=== PATIENT | male | born 1950 | race Caucasian/White ===

== ENCOUNTER 2024-09-14 14:50 | Inpatient (IN) | payer OTHER ==
[~2024-09-14] VITALS: Ht 175.3 cm; Wt 70.7 kg
--- NOTE | 2024-09-14 15:19 | ED.PDOC ---
SOB-HPI HPI Comments 74 y.o male with PMHx of COPD, AFIB, CHF, and left eye vision loss, presents to the ED via EMS for a chief complaint of SOB x 2 weeks. EMS reports patient was picked up from a local family clinic after provider noted abnormal EKG of AFIB and wanted him to be evaluated at the ED for high level of care. Patient reports he went to the clinic to refill inhaler and some other medications as he has been out for " a while now". EMS reported SPO2 of 97% RA but gave a breathing treatment for comfort measures. Patient denies any chest pain, nausea, vomiting, fever, chills, leg swelling. Patient admits to tobacco use, smokes and vapes it. Chief Complaint: Shortness of Breath Time Seen by MD: 14:54 Primary Care Provider: JULIO Cabrales notes: Nurses Notes, Rail Specialist Notes, Medications, Allergies Information Source: Patient, Emergency Med Personnel Mode of Arrival: EMS Severity: Moderate Timing: Weeks (2) Duration: Since onset PE Risk Factors: None History of: COPD Prehospital treatment: 12 Lead EKG, Breathing Tx, Network Control Technician Associated Signs and Symptoms: None Past Medical History PAST MEDICAL HISTORY: AFIB, CHF, COPD Surgical History: CABG, Hernia Repair Family History Family History: Reviewed,noncontributory to illness Social History Smoker: Cigarettes, Other (vape ) Alcohol: Denies ETOH Use Drugs: Denies Drug Use Lives In: Home Constitutional: denies: chills, diaphoresis, fatigue, fever, malaise, sweats, weakness, others EENTM: denies: blurred vision, double vision, ear bleeding, ear discharge, ear drainage, ear pain, ear ringing, eye pain, eye redness, hearing loss, mouth pain , mouth swelling, nasal discharge, nose bleeding, nose congestion, nose pain, photophobia, tearing, throat pain, throat swelling, voice changes, others Respiratory: reports: SOB at rest, shortness of breath, SOB with excertion; denies: cough, hemoptysis, orthopnea, stridor, wheezing, others Cardiovascular: denies: chest pain, dizzy spells, diaphoresis, Dyspnea on exertion, edema, irregular heart beat, left arm pain, lightheadedness, palpitations, PND, syncope, others Gastrointestinal: denies: abdomen distended, abdominal pain, blood streaked bowels, constipated, diarrhea, dysphagia, difficulty swallowing, hematemesis, melena, nausea, poor appetite, poor fluid intake, rectal bleeding, rectal pain, vomiting, others Genitourinary: denies: burning, dysuria, flank pain, frequency, hematuria, incontinence, penile discharge, penile sore, pain, testicle pain, testicle swelling, urgency, others Neurological: denies: dizziness, fainting, headache, left sided numbness, left sided weakness, numbness, paresthesia, pre-existing deficit, right sided numbness, right sided weakness, seizure, speech problems, tingling, tremors, weakness, others Musculoskeletal: denies: back pain, gout, joint pain, joint swelling, muscle pain, muscle stiffness, neck pain, others Integumetry: denies: bruises, change in color, change in hair/nails, dryness, laceration, lesions, lumps, rash, wounds, others Allergic/Immunocompromised: denies: Difficulty Healing, Frequent Infections, Hives, Itching, others Hematologic/Lymphatic: denies: anemia, blood clots, easy bleeding, easy bruising, swollen glands, others Endocrine: denies: excessive hunger, excessive sweating, excessive thirst, excessive urination, flushing, intolerance to cold, intolerance to heat, unexplained weight gain, unexplained weight loss, others Psychiatric: denies: anxiety, bipolar disorder, depression, hopeless, panic disorder, schizophrenia, sleepless, suicidal, others All Other Systems: Reviewed and Negative Physical Exam General Appearance: Moderate Distress HEENT: Normal ENT Inspection, Pharynx Normal, TMs Normal Neck: Full Range of Motion, Non-Tender, Normal, Normal Inspection Respiratory: Chest Non-Tender, Lungs Clear, No Accessory Muscle Use, No Respiratory Distress, Normal Breath Sounds Cardiovascular: Irregular, No Edema, No JVD, No Murmur, No Gallop, Tachycardia Breast Exam: Deferred Gastrointestinal: No Organomegaly, Non Tender, No Pulsatile Mass, Normal Bowel Sounds, Soft Genitalia: Deferred Pelvic: Deferred Rectal: Deferred Extremities: No calf tenderness, Normal capillary refill, Normal inspection, Normal range of motion, Non-tender, No pedal edema Musculoskeletal : Apperance: Normal Neurologic: Alert, cupola charger II-XII nml as Tested, Motor Weakness, Normal Affect, Normal Mood, No Sensory Deficits Cerebellar Function: Normal Reflexes: Normal Skin: Dry, Normal Color, Warm Lymphatic: No Adenopathy EKG EKG : Pulse Rate (adult): 174 Cardiac Rhythm: Afib Was a procedure done? Was a procedure done?: No Differential Dx Differential Diagnosis: Bronchitis, COPD, Pneumonia, Pulmonary Embolism, Respiratory Distress, URI X-Ray, Labs, Meds, VS Vital Signs Date Time Temp Pulse Resp B/P (MAP) Pulse Ox O2 Delivery O2 Flow Rate FiO2 09/14/24 16:00 94 09/14/24 15:50 133 20 96 Room Air* 0 21 09/14/24 15:48 98.1 166 15 124/100 (108) 95 98.1 09/14/24 15:19 174 09/14/24 15:01 174 09/14/24 14:57 97.7 80 20 123/80 (94) 100 Lab Test 09/14/24 15:23 Range/Units White Blood Count 6.0 4.4-10.8 10^3/uL Red Blood Count 4.48 L 4.5-5.90 10^6/uL Hemoglobin 14.9 13.5-17.5 g/dL Hematocrit 43.9 41.0-53.0 % Mean Corpuscular Volume 98.0 80.0-100.0 fL Mean Corpuscular Hemoglobin 33.3 H 28.0-32.0 pg Mean Corpuscular Hemoglobin Concent 34.0 32.0-36.0 g/dL Red Cell Distribution Width 14.9 H 11.8-14.3 % Platelet Count 159 140-450 10^3/uL Mean Platelet Volume 8.4 6.9-10.8 fL Neutrophils (%) (Auto) 68.3 37.0-80.0 % Lymphocytes (%) (Auto) 23.7 10.0-50.0 % Monocytes (%) (Auto) 5.8 0.0-12.0 % Eosinophils (%) (Auto) 1.4 0.0-7.0 % Basophils (%) (Auto) 0.8 0.0-2.0 % Neutrophils # (Auto) 4.1 1.6-8.6 10 ^3/uL Lymphocytes # (Auto) 1.4 0.4-5.4 10 ^3/uL Monocytes # (Auto) 0.3 0-1.3 10 ^3/uL Eosinophils # (Auto) 0.1 0-0.8 10 ^3/uL Basophils # (Auto) 0 0-0.2 10 ^3/uL Nucleated Red Blood Cells 0.1 % Sodium Level 143 136-145 mmol/L Potassium Level 4.3 3.5-5.1 mmol/L Chloride Level 108 H 98-107 mmol/L Carbon Dioxide Level 24 20-31 mmol/L Anion Gap 11 5-15 Blood Urea Nitrogen 29 H 9-23 mg/dL Creatinine 1.39 H 0.700-1.30 mg/dL Glomerular Filtration Rate Calc 53 >90 mL/min BUN/Creatinine Ratio 20.9 H 10.0-20.0 Serum Glucose 112 H 74-106 mg/dL Calcium Level 10.6 H 8.7-10.4 mg/dL Troponin I High Sensitivity 8 </=54 ng/L B-Type Natriuretic Peptide 633.95 0-100 pg/mL Current Medications Medications (Trade) Dose Ordered Sig/Tiffany Route Start Time Stop Time Status Last Admin Methylprednisolone Sodium Succinate (Solu Medrol) 125 mg ONCE ONCE IV 09/14/24 15:15 09/14/24 15:16 DC 09/14/24 16:08 Diltiazem HCl (Cardizem Injection) 15 mg ONCE ONCE IV 09/14/24 15:15 09/14/24 15:16 DC 09/14/24 15:39 IV Hep-Lock was established The patient was given Solu-Medrol 125 mg IV push The patient's EKG showed a heart rate that was irregular at 174 so the patient was given diltiazem 15 mg IV push Following this the patient now has atrial fibrillation at a rate of 94. On the repeat EKG The chemistry panel shows a BUN of 29 a creatinine 1.39 The glucose is 112 The BNP is elevated at 633.95 The patient's CBC is within normal limits At this time, the patient was being admitted to the hospitalist The chest x-ray shows: IMPRESSION: 1. No acute intrathoracic process. 2. Postoperative changes of the heart and borderline cardiomegaly. At this time, the patient was being admitted Images Reviewed?: Images reviewed and evaluated by me Time of 1ST Reevaluation: 15:14 Reevaluation 1ST: Unchanged Patient Education/Counseling: Diagnosis, Treatment, Prognosis Family Education/Counseling: No Family Present Departure 1 Departure Time of Disposition: 16:21 Impression: Primary Impression: COPD exacerbation Additional Impression: Atrial fibrillation with rapid ventricular response Disposition: ADMITTED INPATIENT Admit to: Tele Condition: Fair Critical Care Note Critical Care Time?: Yes (45 min-critical care time only) Stability Stability form required: Yes Unstable for transfer: Telemetry monitoring (Telemetry monitoring required), ED Physician Assesment (Clinical assesment) Heart Score Heart Score: Heart Score Response (Comments) Value History Moderate Suspicious 1 EKG Repolarization Disturb 1 Age >65 2 Risk Factors >3 or Hx ASHD 2 Troponin N/A 0 Total 6 I personally scribed for JOELLE BROWN MD ([email or web address]) on 09/14/24 at 15:19. Electronically submitted by Brie Echevarria ([facility]). JOELLE BROWN MD Sep 14, 2024 15:19
--- NOTE | 2024-09-14 15:37 | DVH ---
EXAM: XY CHEST PORTABLE HISTORY: sob COMPARISON: None TECHNIQUE: Portable upright AP view of the chest was performed. FINDINGS: No pneumothorax, consolidative infiltrates, or pulmonary edema. The heart is borderline enl arged. There are postoperative changes of median sternotomy. IMPRESSION: 1. No acute intrathoracic process. 2. Postoperative changes of the heart and borderline cardiomegaly.
[2024-09-14] MEDS: dilTIAZem 25 MG/5 ML VIAL IV ONE (15:39)
[2024-09-14 15:44] LABS: Basophils # (auto) 0 10 ^3/uL (0-0.2); Basophils % (auto) 0.8 % (0.0-2.0); Eosinophils # (auto) 0.1 10 ^3/uL (0-0.8); Eosinophils % (auto) 1.4 % (0.0-7.0); Hematocrit 43.9 % (41.0-53.0); Hemoglobin 14.9 g/dL (13.5-17.5); Lymphocytes # (auto) 1.4 10 ^3/uL (0.4-5.4); Lymphocytes % (auto) 23.7 % (10.0-50.0); Mean Corpuscular Hemoglobin 33.3 pg (28.0-32.0); Monocytes # (auto) 0.3 10 ^3/uL (0-1.3); Monocytes % (auto) 5.8 % (0.0-12.0); Neutrophils # (auto) 4.1 10 ^3/uL (1.6-8.6); Neutrophils % (auto) 68.3 % (37.0-80.0); Nucleated Red Blood Cells % 0.1 %; Platelet Count (auto) 159 10^3/uL (140-450); Red Blood Cells 4.48 10^6/uL (4.5-5.90); Red Cell Distribution Width 14.9 % (11.8-14.3)
[2024-09-14 15:50] VITALS: PULSE 133; RESP 20; O2SAT 96
[2024-09-14 15:52] LABS: Potassium 4.3 mmol/L (3.5-5.1); Sodium 143 mmol/L (136-145)
[2024-09-14 15:53] LABS: Anion Gap 11 (5-15); Carbon Dioxide 24 mmol/L (20-31)
[2024-09-14 15:55] LABS: Calcium 10.6 mg/dL (8.7-10.4); Chloride 108 mmol/L (98-107)
--- NOTE | 2024-09-14 15:55 | ECG ---
[facility] Test Date: 2024-09-14 Test Time: 15:01:03 Pat Name: FENG BRIONES Department: ER Room: 0280T Gender: M Ceo Ziff Davis: BAL[place] : 1950 Requested By: JOELLE BROWN Order Number: [id number] Reading MD: Gavin Abraham Measurements Intervals [place] Rate: 174 P: 0 DC: 0 QRS: 111 QRSD: 82 T: -4 QT: 273 QTc: 465 Interpretive Statements Atrial fibrillation with rapid V-rate Right axis deviation Low voltage, extremity leads Repolarization abnormality, prob rate related Electronically Signed On 09-19-2024 18:23:52 PDT by Gavin Abraham Please click the below link to view image of tracing.
[2024-09-14 15:59] LABS: BUN/Creatinine Ratio 20.9 (10.0-20.0)
[2024-09-14 16:01] LABS: Blood Urea Nitrogen 29 mg/dL (9-23); Glucose 112 mg/dL (74-106)
--- NOTE | 2024-09-14 16:06 | ECG ---
[facility] Test Date: 2024-09-14 Test Time: 16:00:45 Pat Name: FENG BRIONES Department: ER Room: 0280T Gender: M Relations Liaison: BAL[place] : 1950 Requested By: JOELLE BROWN Order Number: [id number] Reading MD: Gavin Abraham Measurements Intervals [place] Rate: 94 P: 0 [place]: 0 QRS: 127 QRSD: 96 T: -39 QT: 371 QTc: 464 Interpretive Statements Atrial fibrillation Right axis deviation Borderline low voltage, extremity leads Nonspecific T abnormalities, lateral leads Electronically Signed On 09-19-2024 18:24:07 PDT by Gavin Abraham Please click the below link to view image of tracing.
[2024-09-14] MEDS: methylPREDNISolone SOD SUCC 125 MG/2 ML VL IV ONE (16:08)
--- NOTE | 2024-09-14 18:09 | ECG ---
[facility] Test Date: 2024-09-14 Test Time: 18:06:28 Pat Name: FENG BRIONES Department: ER Room: 0280T Gender: M Tactical/Mobile Watch Officer: BAL[place] : 1950 Requested By: JOELLE BROWN Order Number: [id number] Reading MD: Gavin Abraham Measurements Intervals [place] Rate: 108 P: 0 [place]: 0 QRS: 179 QRSD: 99 T: -90 QT: 365 QTc: 490 Interpretive Statements Atrial fibrillation Right axis deviation Borderline low voltage, extremity leads Electronically Signed On 09-19-2024 18:24:48 PDT by Gavin Abraham Please click the below link to view image of tracing.
[2024-09-14 18:30] LABS: Urine Bacteria None Seen /hpf (None Seen)
[2024-09-14] MEDS ORDERED: NITROGLYCERIN 0.4 MG SL TAB SL PRN (18:30)
[2024-09-14] MEDS ORDERED: MORPHINE SULFATE INJ 2 MG/ml SYRG IV PRN (18:30)
[2024-09-14] MEDS ORDERED: ONDANSETRON HCL 4 MG/2 ML VIAL IV PRN (18:30)
--- NOTE | 2024-09-14 18:34 | DVHHP2 ---
History of Present Illness Reason for Visit: Acute exacerbation of congestive heart failure History of Present Illness The patient is a 74-year-old male with past medical history of left eye vision loss, COPD, AFib, and congestive heart failure who presented to [facility] ED with complaint of shortness of breaths for the past 2 weeks. As reported by EMS, patient was picked up from a local family clinic after provided noted abnormal EKG of atrial fibrillation and wanted him to be evaluated in the ED for higher level of care. Patient was seen and evaluated in the ED, l aboratory data shows WBC 6.0, platelets 159, sodium 143, potassium 4.3, BUN 29, creatinine 1.39, GFR 53, glucose 112, calcium 10.6, BNP 633.95, troponin 8, blood pressure 124/100, heart rate 174 trending down to 94, temperature 98.1 F, O2 saturation 96% on room air. Chest x-ray revealing postoperative changes of the heart and borderline cardiomegaly, no acute intrathoracic process. Patient was given IV Cardizem 50 mg x 1, IV Lasix, please see medication orders section in the computer. On my assessment, patient denied chest pain, no headache, no dizziness, no diaphoresis, no shortness of breath at this moment, no nausea, no vomiting, no fever, no chills. Patient was admitted for further evaluation and medical management. Past Medical History AFIB, CHF, COPD, Left eye vision loss Past Surgical History CABG, Hernia Repair Family History Reviewed, noncontributory to the management of this case. Past Social History The patient lives at home, smokes cigarettes, denies alcohol or illicit drugs abuse. Review of Systems Constitutional: Yes: Weakness; No: Fever, Chills, Sweats, Malaise, Other Eyes: No: Pain, Vision change, Conjunctivae inflammation, Eyelid inflammation, Other, Redness ENT: No: Ear pain, Ear discharge, Nose pain, Nose discharge, Nose congestion, Mouth pain, Mouth swelling, Throat pain, Throat swelling, Other Respiratory: Shortness of breath, SOB with excertion, Other (SOB at rest); No: Cough, Dry, Wheezing, Hemoptysis, Pleuritic Pain, Sputum, Wheezing Cardiovascular: Other (AFib); No: Chest Pain, Palpitations, Orthopnea, Paroxysmal Noc. Dyspnea, Edema, Lt Headedness Gastrointestinal: No: Nausea, Vomiting, Abdominal Pain, Diarrhea, Constipation, Melena, Hematochezia, Other Genitourinary: No Dysuria, No Frequency, No Incontinence, No Hematuria, No Retention, No Other Musculoskeletal: No: other, neck pain, shoulder pain, arm pain, back pain, hand pain, leg pain, foot pain Skin: No: Rash, Lesions, Jaundice, Bruising, Other Neurological: No: Weakness, Numbness, Incoordination, Change in speech, Confusion, Seizures, Other Allergies: Coded Allergies: NO KNOWN ALLERGIES (Unverified , 09/14/24) Exam Vital Signs Vital Signs Date Time Temp Pulse Resp B/P (MAP) Pulse Ox O2 Delivery O2 Flow Rate FiO2 09/14/24 16:00 94 09/14/24 15:50 20 96 Room Air* 0 21 09/14/24 15:48 98.1 124/100 (108) 98.1 General Appearance: Alert, Oriented X3, Cooperative, No acute distress HEENT: Atraumatic, PERRLA, EOMI, Mucous membr. moist/pink Respiratory: Clear to auscultation, Normal air movement Cardiovascular: Regular rate, Normal S1, Normal S2, No murmurs Abdominal: Normal bowel sounds, Soft, No tenderness, No hepatospenomegaly Extremities: No clubbing, No cyanosis, No edema, Normal pulses, No tenderness/swelling Skin: No rashes, No breakdown, No significant lesion Neuro: Normal speech, Normal tone, Sensation intact, Cranial nerves 3-12 NL, Reflexes 2+, Other (Generalized weakness) Psych/Mental Status: Mental status NL, Mood NL Labs/Xrays Labs Test 09/14/24 18:29 09/14/24 16:28 09/14/24 15:23 Range/Units Troponin I High Sensitivity 8 </=54 ng/L White Blood Count 6.0 4.4-10.8 10^3/uL Red Blood Count 4.48 L 4.5-5.90 10^6/uL Hemoglobin 14.9 13.5-17.5 g/dL Hematocrit 43.9 41.0-53.0 % Mean Corpuscular Volume 98.0 80.0-100.0 fL Mean Corpuscular Hemoglobin 33.3 H 28.0-32.0 pg Mean Corpuscular Hemoglobin Concent 34.0 32.0-36.0 g/dL Red Cell Distribution Width 14.9 H 11.8-14.3 % Platelet Count 159 140-450 10^3/uL Mean Platelet Volume 8.4 6.9-10.8 fL Neutrophils (%) (Auto) 68.3 37.0-80.0 % Lymphocytes (%) (Auto) 23.7 10.0-50.0 % Monocytes (%) (Auto) 5.8 0.0-12.0 % Eosinophils (%) (Auto) 1.4 0.0-7.0 % Basophils (%) (Auto) 0.8 0.0-2.0 % Neutrophils # (Auto) 4.1 1.6-8.6 10 ^3/uL Lymphocytes # (Auto) 1.4 0.4-5.4 10 ^3/uL Monocytes # (Auto) 0.3 0-1.3 10 ^3/uL Eosinophils # (Auto) 0.1 0-0.8 10 ^3/uL Basophils # (Auto) 0 0-0.2 10 ^3/uL Nucleated Red Blood Cells 0.1 % Sodium Level 143 136-145 mmol/L Potassium Level 4.3 3.5-5.1 mmol/L Chloride Level 108 H 98-107 mmol/L Carbon Dioxide Level 24 20-31 mmol/L Anion Gap 11 5-15 Blood Urea Nitrogen 29 H 9-23 mg/dL Creatinine 1.39 H 0.700-1.30 mg/dL Glomerular Filtration Rate Calc 53 >90 mL/min BUN/Creatinine Ratio 20.9 H 10.0-20.0 Serum Glucose 112 H 74-106 mg/dL Calcium Level 10.6 H 8.7-10.4 mg/dL B-Type Natriuretic Peptide 633.95 0-100 pg/mL PATIENT: FEGN BRIONES ACCT: [id number] UNIT: [id number] : 1950 LOC: ER ROOM / BED: / AGE / SEX: 74 / M ADM STATUS: REG ER SERVICE [id number] ORDERING PHYSICIAN: JOELLE BROWN MD PROCEDURE(s): CXRP - CHEST PORTABLE REASON: sob ORDER NUMBER(s): [id number], ACCESSION NUMBER(s): [id number] EXAM: XY CHEST PORTABLE HISTORY: sob COMPARISON: None TECHNIQUE: Portable upright AP view of the chest was performed. FINDINGS: No pneumothorax, consolidative infiltrates, or pulmonary edema. The heart is borderline enlarged. There are postoperative changes of median sternotomy. IMPRESSION: 1. No acute intrathoracic process. 2. Postoperative changes of the heart and borderline cardiomegaly. Assessment/Plan Assessment/Plan COPD with acute exacerbation Acute renal injury Atrial fibrillation with rapid ventricular response Acute exacerbation of congestive heart failure Plan 1. Admit to telemetry unit 2. Breathing treatment 3. Pain control management 4. Management of fluids and electrolytes 5. Consultation for Cardiology 6. Diagnostic tests chest x-ray 7. DVT prophylaxis-on aspirin 8. Repeat labs CBC, CMP in a.m. 9. Continue with current medical management 10. Treatment plan discussed with patient and RN. Patient verbalized understanding. Plan discussed with: Patient, Other (RN) My Orders Orders - ISHMAEL OAKES DNP Procedure Category Date Status Time Aspirin Tablet PHA 09/15/24 Transmitted 10:00 Methylprednisolone PHA 09/14/24 Transmitted Sod Succ (Solu Medrol 22:00 Famotidine Injection PHA 09/14/24 Transmitted (Pepcid Injection) 22:00 Carvedilol Tablet PHA 09/14/24 Transmitted (Coreg Tablet) 22:00 Furosemide Injection PHA 09/14/24 Transmitted (Lasix Injection) 18:30 Furosemide Injection PHA 09/15/24 Transmitted (Lasix Injection) 10:00 * Cardiology Consult CONS 09/14/24 Transmitted 18:28 Admit ADMIT 09/14/24 Transmitted 18:28 Allergies YEE 09/14/24 Transmitted 18:28 Code Status CODE 09/14/24 Transmitted 18:28 Sodium Chloride Lock PHA 09/14/24 Transmitted (Saline Lock Ns) 22:00 Oxygen Per Hour RT 09/14/24 Transmitted 18:28 Hydrocodone-Acet PHA 09/14/24 Transmitted 5/325mg Tab ([place] 18:30 Ondansetron Hcl PHA 09/14/24 Transmitted (Zofran) 18:30 Docusate Sodium PHA 09/14/24 Transmitted Capsule (Colace 18:30 Fall Risk Precautions YEE 09/14/[address] 18:28 Complete Blood Count LAB 09/15/24 Verified 04:00 Comprehensive LAB 09/15/24 Verified Metabolic Panel 04:00 Cardiac DIET 09/14/24 Transmitted Diet-2gna,Lofat,Lochol Dinner Echo 2d Mode Cardiac US 09/14/24 Transmitted DOP 18:28 Condition: Serious YEE 09/14/24 Transmitted 18:28 Acetaminophen Tablet PHA 09/14/24 Transmitted (Tylenol Tablet) 18:30 Bedrest With Bathroom YEE 09/14/24 Transmitted Privileg 18:28 Sequential YEE 09/14/24 Transmitted Compression Device Nitroglycerin PHA 09/14/24 Transmitted Sublingual (Ntrostat 18:30 Morphine Sulfate PHA 09/14/24 Transmitted Injection 18:30 Stat Ekg For Chest YEE 09/14/24 Transmitted Pain 18:28 Notify Md Of Changes YEE 09/14/24 Transmitted From Base 18:28 Supervisor Poultry Hat[employer]y For [facility] 09/14/24 Transmitted 24 Hours 18:28 Emergency Dysrhythmia YEE 09/14/24 Transmitted Protocol 18:28 Rhythm Strips Once YEE 09/14/24 Transmitted Every Shift 18:28 Oxygen By Nasal RT 09/14/24 Transmitted Cannula 18:28 Problem List: (1) COPD with acute exacerbation (2) Acute renal injury (3) Acute exacerbation of congestive heart failure (4) Atrial fibrillation with rapid ventricular response Date of Service: Sep 14, 2024 Billing Provider: ISHMAEL OAKES DNP Common Visit Codes: [id number] INP/OBS CARE (HIGH) ISHMAEL OAKES DNP Sep 14, 2024 18:34
[2024-09-14 18:49] LABS: Urine Blood 1+ /uL (Negative); Urine Clarity Clear (Clear); Urine Color Colorless (Yellow); Urine Protein, UAD Negative (Negative); Urine Specific Gravity 1.008 (1.001-1.035); Urine Squamous Epithelial Cell None Seen /hpf (<5); Urine Urobilinogen Normal (Negative); Urine WBC < 1 /HPF (0-3)
[2024-09-14] MEDS: FUROSEMIDE 20 MG/2 ML VIAL IV ONE (18:51)
[2024-09-14 19:30] VITALS: PULSE 104; RESP 13; O2SAT 96
[2024-09-14 22:00] VITALS: BP 108/82; PULSE 117; RESP 19; TEMP 97.7; O2SAT 97
[2024-09-14 22:05] VITALS: BP 108/82; PULSE 117; RESP 19; TEMP 97.7; O2SAT 97
[2024-09-14 22:20] VITALS: PULSE 117; RESP 20; O2SAT 97
[2024-09-14] MEDS: methylPREDNISolone SOD SUCC 40 MG/ML VL IV SCH (22:25)
[2024-09-14] MEDS: CARVEDILOL 3.125 MG TAB PO SCH (22:27)
[2024-09-14] MEDS: SODIUM CHLOR 0.9% PF (SALINE LOCK) 10ML VIAL/SYR IV SCH (22:28)
[2024-09-14] MEDS: FAMOTIDINE (10MG/ML) 2ML VL IV SCH (22:33)
[2024-09-15] VITALS (9 sets, daily range): BP systolic 92–112; BP diastolic 62–91; PULSE 53–126; RESP 16–20; TEMP 97.3–98.5; O2SAT 95–98
[2024-09-15] MEDS: ACETAMINOPHEN 325 MG TAB PO PRN (01:46)
[2024-09-15 06:47] LABS: Basophils # (auto) 0 10 ^3/uL (0-0.2); Basophils % (auto) 0.1 % (0.0-2.0); Eosinophils # (auto) 0 10 ^3/uL (0-0.8); Lymphocytes # (auto) 0.5 10 ^3/uL (0.4-5.4); Monocytes # (auto) 0.1 10 ^3/uL (0-1.3)
[2024-09-15 06:48] LABS: Alanine Aminotransferase 16 U/L (7-40); Albumin 4.2 g/dL (3.2-4.8); Alkaline Phosphatase 63 U/L (46-116); Anion Gap 11 (5-15); Aspartate Aminotransferase 23 U/L (13-40); BUN/Creatinine Ratio 23.1 (10.0-20.0); Calcium 10.3 mg/dL (8.7-10.4); Carbon Dioxide 23 mmol/L (20-31); Chloride 107 mmol/L (98-107); Potassium 4.3 mmol/L (3.5-5.1); Sodium 141 mmol/L (136-145); Total Protein 6.8 g/dL (5.7-8.2)
[2024-09-15 06:49] LABS: Bilirubin, Total 0.3 mg/dL (0.2-1.0)
[2024-09-15 06:50] LABS: Hematocrit 40.2 % (41.0-53.0); Hemoglobin 13.9 g/dL (13.5-17.5); Lymphocytes % (auto) 9.3 % (10.0-50.0); Mean Corpuscular Hemoglobin 34.1 pg (28.0-32.0); Mean Corpuscular Hgb Conc. 34.6 g/dL (32.0-36.0); Mean Corpuscular Volume 98.3 fL (80.0-100.0); Monocytes % (auto) 1.8 % (0.0-12.0); Neutrophils # (auto) 4.6 10 ^3/uL (1.6-8.6); Neutrophils % (auto) 88.8 % (37.0-80.0); Platelet Count (auto) 133 10^3/uL (140-450); Red Blood Cells 4.09 10^6/uL (4.5-5.90); Red Cell Distribution Width 14.6 % (11.8-14.3); White Blood Cell 5.2 10^3/uL (4.4-10.8)
[2024-09-15 06:51] LABS: Blood Urea Nitrogen 30 mg/dL (9-23); Glucose 143 mg/dL (74-106)
[2024-09-15] MEDS: ASPirin 81 mg TAB PO SCH (10:29)
[2024-09-15] MEDS: FUROSEMIDE 20 MG/2 ML VIAL IV SCH ×2 (10:32→18:00)
--- NOTE | 2024-09-15 13:39 | DVHPN2 ---
Reviewed: Care Plan, H&P, Labs, Medications, Previous Orders, Radiology Changes from previous H/P or p: No Changes Eyes: No Pain, No Vision change, No Conjunctivae inflammation, No Eyelid inflammation, No Other, No Redness ENT: No Ear pain, No Ear discharge, No Nose pain, No Nose discharge, No Nose congestion, No Mouth pain, No Mouth swelling, No Throat pain, No Throat swelling, No Other Cardiovascular: No Chest Pain, No Palpitations, No Orthopnea, No Paroxysmal Noc. Dyspnea, No Edema, No Lt Headedness; Other (AFib) Respiratory: No Cough, No Dry; Shortness of breath, SOB with excertion; No Wheezing, No Hemoptysis, No Pleuritic Pain, No Sputum; Other (SOB at rest) Gastrointestinal: No Nausea, No Vomiting, No Abdominal Pain, No Diarrhea, No Constipation, No Melena, No Hematochezia, No Other Genitourinary: No Dysuria, No Frequency, No Incontinence, No Hematuria, No Retention, No Other Musculoskeletal: No other, No neck pain, No shoulder pain, No arm pain, No back pain, No hand pain, No leg pain, No foot pain Skin: No Rash, No Lesions, No Jaundice, No Bruising, No Other Objective Vitals Vital Signs Date Time Temp Pulse Resp B/P (MAP) Pulse Ox O2 Delivery O2 Flow Rate FiO2 09/15/24 10:32 125/68 09/15/24 10:27 68 09/15/24 09:00 98.5 17 96 98.5 09/15/24 08:00 Room Air* 0 21 Intake/Output Intake and Output 09/15/24 07:00 Intake Total 350 ml Balance 350 ml Intake Oral 350 ml # Voids 2 Medications Current Medications Medications Dose Ordered Sig/Tiffany Route Start Time Stop Time Status Last Admin Dose Admin Aspirin 81 mg DAILY PO 09/15/24 10:00 09/15/24 10:29 81 MG Methylprednisolone Sodium Succinate 40 mg Q8HR IV 09/14/24 22:00 09/15/24 05:39 40 MG Famotidine 20 mg EOD IV 09/14/24 22:00 09/14/24 22:33 20 MG Carvedilol 3.125 mg Q12HR PO 09/14/24 22:00 09/15/24 10:27 3.125 MG Furosemide 20 mg DAILY IV 09/15/24 10:00 09/15/24 10:32 20 MG Sodium Chloride 10 ml Q8HR IV 09/14/24 22:00 09/15/24 05:39 10 ML Acetaminophen/ Hydrocodone Bitart 1 tab Q4HP PRN PO 09/14/24 18:30 Ondansetron HCl 4 mg Q4HP PRN IV 09/14/24 18:30 Docusate Sodium 100 mg BIDPRN PRN PO 09/14/24 18:30 Acetaminophen 650 mg Q6HP PRN PO 09/14/24 18:30 09/15/24 01:46 650 MG Nitroglycerin 0.4 mg Q5MINP PRN SL 09/14/24 18:30 Morphine Sulfate 2 mg Q30M PRN IV 09/14/24 18:30 Laboratory Results Laboratory Tests 09/15/24 05:52 Chemistry Test 09/14/24 15:23 09/15/24 05:52 Calcium Level 10.6 mg/dL (8.7-10.4) H 10.3 mg/dL (8.7-10.4) Albumin 4.2 g/dL (3.2-4.8) Total Protein 6.8 g/dL (5.7-8.2) Cardiac Markers Test 09/14/24 15:23 B-Type Natriuretic Peptide 633.95 pg/mL (0-100) LFT Test 09/15/24 05:52 Alanine Aminotransferase (ALT) 16 U/L (7-40) Alkaline Phosphatase 63 U/L (46-116) Aspartate Amino Transferase (AST) 23 U/L (13-40) Total Bilirubin 0.3 mg/dL (0.2-1.0) Urinalysis Test 09/14/24 18:29 Urine Color Colorless (Yellow) Urine Clarity Clear (Clear) Urine pH 6.0 (5.0-9.0) Urine Specific [place] 1.008 (1.001-1.035) Urine Protein Negative (Negative) Urine Ketones 1+ (Negative) H Urine Blood 1+ /uL (Negative) H Urine Nitrite Negative (Negative) Urine Bilirubin Negative (Negative) Urine Urobilinogen Normal mg/dL (Negative) Urine Leukocyte Esterase Negative /uL (Negative) Urine RBC 8 /hpf (0 - 3) Urine Microscopic WBC < 1 /HPF (0-3) Urine Squamous Epithelial Cells None seen /hpf (<5) Urine Bacteria None seen /hpf (None Seen) Urine Glucose Normal mg/dL (Normal) Labs and/or images reviewed: Labs reviewed by me, Image(s) reviewed by me Assessment/Plan Assessment/Plan Acute on chronic hypoxic respiratory failure Acute COPD exacerbation albuterol Atrovent Solu-Medrol Acute exacerbation of congestive heart failure: Cardiology consult, Kasandra Day AFib with a RVR Acute kidney injury Left eye blind Time spent 45 minutes Patient is full code Flu test COVID test and D-dimer ordered Plan discussed with: Patient Date of Service: Sep 15, 2024 Billing Provider: PILY ANGEL MD Common Visit Codes: [id number] INP/OBS CARE(HIGH) Secondary Visit Codes: [id number] CARE PLAN 30 MINUTES PILY ANGEL MD Sep 15, 2024 13:39
[2024-09-15] MEDS ORDERED: ALBUTEROL SULF 2.5 MG/0.5ML(0.5%) NEB SOLN NEB PRN (13:45)
[2024-09-15] MEDS ORDERED: IPRATROPIUM BROM 0.5 MG/2.5ML INH SOL NEB PRN (13:45)
--- NOTE | 2024-09-15 13:59 | DVHINCON2 ---
RAMSES WOLF [facility] 09/15/24 1359: Date Seen: Sep 15, 2024 Referring Physician VERONA Lzaaro Reason for Consultation A-fib with RVR History of Present Illness This is a 74-year-old man who presented to the emergency room via EMS with a chief complaint of AFib with RVR. The patient reports he attended an appointment with his PCP in order to refill his nebulizer given progressive shortness of breath associated with YOUSIF and dizziness for the past two weeks. He underwent a 12 lead electrocardiogram revealing an atrial fibrillation rhythm with rapid ventricular rate prompting medical staff to call 911. Upon arrival to the emergency room he underwent subsequent 12 lead electrocardiogram revealing AFib with RVR up to the 170s and nonspecific changes to inferolateral leads. Denies chest pain, palpitations, diaphoresis, or syncopal events. Serial troponin levels are negative. Denies following up in the outpatient setting with the primary assembler seat even though he has extensive cardiac history including a-fib. He also denies any anticoagulation therapy at home stating he was prescribed warfarin therapy right after CABG eight years ago. States warfarin is "rat poison" and his research friend recommended ASA 81mg q6h which he has been taking since. Significant medical history includes quadruple vessel CABG at [facility] on 2017, unspecified atrial fibrillation without AC/DOAC/antiarrhythmic therapy, congestive heart failure, COPD, tobacco use, and hard of hearing. Past Medical History Past medical history reviewed. No other significant than mentioned above. Past Surgical History Quadruple vessel CABG, 2017 Inguinal hernia Family History: Patient reports no known family medical history. Family History Family history reviewed. Social History Denies the use of illicit drugs and alcohol. Admits to tobacco use. Allergies: Coded Allergies: NO KNOWN ALLERGIES (Unverified , 09/14/24) Home Meds Unable to retrieve home medications. Current Medications Current Medications Medications (Trade) Dose Ordered Sig/Tiffany Route PRN Reason Start Time Stop Time Status Last Admin Aspirin 81 mg DAILY PO 09/15/24 10:00 09/15/24 10:29 Methylprednisolone Sodium Succinate (Solu Medrol) 40 mg Q8HR IV 09/14/24 22:00 09/15/24 05:39 Famotidine (Pepcid Injection) 20 mg EOD IV 09/14/24 22:00 09/14/24 22:33 Carvedilol (Coreg Tablet) 3.125 mg Q12HR PO 09/14/24 22:00 09/15/24 10:27 Furosemide (Lasix Injection) 20 mg DAILY IV 09/15/24 10:00 09/15/24 10:32 Sodium Chloride (Saline Lock Ns) 10 ml Q8HR IV 09/14/24 22:00 09/15/24 05:39 Acetaminophen/ Hydrocodone Bitart ([place] 5/325MG Tab) 1 tab Q4HP PRN PO MODERATE PAIN (4-6 PAIN SCALE) 09/14/24 18:30 Ondansetron HCl (Zofran) 4 mg Q4HP PRN IV NAUSEA / VOMITING 09/14/24 18:30 Docusate Sodium (Colace Capsule) 100 mg BIDPRN PRN PO FOR CONSTIPATION 09/14/24 18:30 Acetaminophen (Tylenol Tablet) 650 mg Q6HP PRN PO PAIN SCALE 1-3 OR TEMP>100.4 09/14/24 18:30 09/15/24 01:46 Nitroglycerin (Ntrostat Sublingual) 0.4 mg Q5MINP PRN SL FOR CHEST PAIN 09/14/24 18:30 Morphine Sulfate 2 mg Q30M PRN IV FOR CHEST PAIN 09/14/24 18:30 Review of Systems Constitutional: No symptom reported Ears, Nose, & Throat: No symptom reported Eyes: No symptom reported Neurological: Dizziness Pulmonary/Respiratory: SOB Cardiovascular: No symptom reported Gastrointestinal: No symptom reported Genitourinary: No symptom reported Musculoskeletal: No symptom reported Skin: No symptom reported Psychiatric: No symptom reported Endocrine: No symptom reported Hemotologic/Lymphatic: No symptom reported Vital Signs Vital Signs Date Time Temp Pulse Resp B/P (MAP) Pulse Ox O2 Delivery O2 Flow Rate FiO2 09/15/24 10:32 125/68 09/15/24 10:27 68 09/15/24 09:00 98.5 17 96 98.5 09/15/24 08:00 Room Air* 0 21 Physical Exam General Appearance: Cooperative. Altered. Hard of hearing. Well nourished. In no acute distress Head Exam: Normal inspection Neck Exam: Normal inspection. Non-tender. Normal alignment Pulmonary/Respiratory: Chest non-tender. Clear bilateral breath sounds Cardiovascular/Chest: Irregularly irregular rate and rhythm. AFib, uncontrolled rate. No murmurs. No JVD. Peripheral Pulses: 2+ Radial (R). 2+ Radial (L). 2+ Pedal (R). 2+ Pedal (L) Abdominal Exam: Normal bowel sounds. Soft. Nontender. No hepatospenomegaly. No masses Ankle Exam: Negative ankle edema Lower extremities: Negative lower extremity edema Neuro/Mental Status: A&O x4. Coherent Thoughts/Psych: Normal thought pattern. Appropriate mood and affect. Good judgement and insight Appearance: In no acute distress Skin Exam: Normal inspection. Normal color. Warm. Dry Labs/Diagnostic Data Labs Test 09/15/24 05:52 09/14/24 18:29 09/14/24 16:28 09/14/24 15:23 Range/Units White Blood Count 5.2 4.4-10.8 10^3/uL Red Blood Count 4.09 L 4.5-5.90 10^6/uL Hemoglobin 13.9 13.5-17.5 g/dL Hematocrit 40.2 L 41.0-53.0 % Mean Corpuscular Volume 98.3 80.0-100.0 fL Mean Corpuscular Hemoglobin 34.1 H 28.0-32.0 pg Mean Corpuscular Hemoglobin Concent 34.6 32.0-36.0 g/dL Red Cell Distribution Width 14.6 H 11.8-14.3 % Platelet Count 133 L 140-450 10^3/uL Mean Platelet Volume 8.3 6.9-10.8 fL Neutrophils (%) (Auto) 88.8 H 37.0-80.0 % Lymphocytes (%) (Auto) 9.3 L 10.0-50.0 % Monocytes (%) (Auto) 1.8 0.0-12.0 % Eosinophils (%) (Auto) 0.0 0.0-7.0 % Basophils (%) (Auto) 0.1 0.0-2.0 % Neutrophils # (Auto) 4.6 1.6-8.6 10 ^3/uL Lymphocytes # (Auto) 0.5 0.4-5.4 10 ^3/uL Monocytes # (Auto) 0.1 0-1.3 10 ^3/uL Eosinophils # (Auto) 0 0-0.8 10 ^3/uL Basophils # (Auto) 0 0-0.2 10 ^3/uL Nucleated Red Blood Cells 0.0 % Sodium Level 141 136-145 mmol/L Potassium Level 4.3 3.5-5.1 mmol/L Chloride Level 107 98-107 mmol/L Carbon Dioxide Level 23 20-31 mmol/L Anion Gap 11 5-15 Blood Urea Nitrogen 30 H 9-23 mg/dL Creatinine 1.30 0.700-1.30 mg/dL Glomerular Filtration Rate Calc 57 >90 mL/min BUN/Creatinine Ratio 23.1 H 10.0-20.0 Serum Glucose 143 H 74-106 mg/dL Calcium Level 10.3 8.7-10.4 mg/dL Total Bilirubin 0.3 0.2-1.0 mg/dL Aspartate Amino Transferase (AST) 23 13-40 U/L Alanine Aminotransferase (ALT) 16 7-40 U/L Alkaline Phosphatase 63 46-116 U/L Total Protein 6.8 5.7-8.2 g/dL Albumin 4.2 3.2-4.8 g/dL Urine Color Colorless Yellow Urine Clarity Clear Clear Urine pH 6.0 5.0-9.0 Urine Specific [place] 1.008 1.001-1.035 Urine Protein Negative Negative Urine Ketones 1+ H Negative Urine Blood 1+ H Negative /uL Urine Nitrite Negative Negative Urine Bilirubin Negative Negative Urine Urobilinogen Normal Negative mg/dL Urine Leukocyte Esterase Negative Negative /uL Urine RBC 8 0 - 3 /hpf Urine Microscopic WBC < 1 0-3 /HPF Urine Squamous Epithelial Cells None seen <5 /hpf Urine Bacteria None seen None Seen /hpf Urine Glucose Normal Normal mg/dL Troponin I High Sensitivity 8 </=54 ng/L B-Type Natriuretic Peptide 633.95 0-100 pg/mL Assessment Atrial fibrillation with rapid ventricular rate, off NOAC/AC therapy at home Acute on chronic decompensated HFrEF, newly diagnosed COPD with current tobacco use Borderline thrombocytopenia Acute kidney injury Hard of hearing Plan/Recommendation (Dr. Mckeon) Case discussed in full detail and patient evaluated by Dr. Mckeon. We will continue further cardiac evaluation with a transthoracic echocardiogram to evaluate cardiac function. In the meantime, initiate GDMT for CHF and uptitrate as tolerated. Initiate Preload and afterload reduction in combination with strict I&Os and fluid restriction. Continue single-antiplatelet therapy and lipid lowering agent given history of CAD. Initiate rate control with beta- harshil and digoxin therapy as HR is fluctuating up to the 160s bpm. Initiate NOAC therapy with low-dose Eliquis given borderline thrombocytopenia ([id number]- VASc Score 4 points, HAS-BLED Score 2 points). Hold antiarrhythmic therapy given onset of symptoms and lack of AC therapy at home. Monitor ECG changes closely and notify. Thank you for allowing us to participate in this patient's care. Please call if you have any questions or concerns. This medical document was created using an electronic medical record system with voice recognition software and computerized dictation system. Although this document has been carefully reviewed, there might still be some phonetic and typographical errors. Occasional wrong-word or ``sound-alike substitutions may have occurred due to the inherent limitations of voice recognition software. These areas are purely typographical due to imperfections of the software pro grams and do not reflect any compromise in the patient's medical care. Please read the chart carefully and recognize, using context, where these substitutions have occurred. Plan discussed with: Patient, Other NYHA Physical activity limitations: Class3(Marked) ordinary (activity causes symtoms) Date of Service: Sep 15, 2024 Billing Provider: RAMSES WOLF Cardiology Common Codes: [id number] INP/OBS CARE (High) SAMIA MCKEON MD 09/17/24 1633: Date Seen: Sep 15, 2024 Family History: Patient reports no known family medical history. Allergies: Coded Allergies: NO KNOWN ALLERGIES (Unverified , 09/14/24) Plan/Recommendation 74-year-old male with a long history of atrial fibrillation, possibly post cardiac surgery reports non-compliance with anticoagulation due to concerns of warfarin. Currently AF with RVR. Reports sob x 2 weeks. I had a long discussion with the patient about his about the importance of appropriate management to avoid further deterioration.I also noted to him that the transthoracic echocardiogram is demonstrating an enlarged aorta that will need further referral and follow up. I have provided him with my business card to facilitate early discharge follow up in the clinic. Patient has reported significant difficulties with medication compliance due to cost as well as transportation issues.We will pursue rate control and anticoagulation with DA, we will ask case management to facilitate reducing cost of medication's. Suspect underlying psychiatric disorder given his flight of ideas and mood swing.Recommend against discharging patient on digoxin due to known risk associated with drug. Cardiology Common Codes: [id number] INP/OBS CARE (High) RAMSES WOLF Sep 15, 2024 13:59 SAMIA MCKEON MD Sep 17, 2024 16:33
[2024-09-15 14:57] LABS: Magnesium 2.2 mg/dL (1.6-2.6)
[2024-09-15] MEDS: DIGOXIN (250MCG/ML) 2 ML AMPULE IV ONE (16:03)
[2024-09-15] MEDS: dilTIAZem 25 MG/5 ML VIAL IV ONE (17:43)
[2024-09-15] MEDS: methylPREDNISolone SOD SUCC 40 MG/ML VL ONE (17:43)
[2024-09-15] MEDS: ATORVASTATIN 20 MG TAB PO SCH (21:57)
[2024-09-15] MEDS ORDERED: APIXABAN 2.5 MG TAB PO SCH (22:00)
[2024-09-15 23:12] LABS: COVID19 ANTIGEN SOFIA FIA NEGATIVE (NEGATIVE); Rapid Influenza A Negative (Negative); Rapid Influenza B Negative (Negative)
--- NOTE | 2024-09-15 23:56 | DVH ---
CT ANGIOGRAM CHEST WITH CONTRAST FOR PULMONARY EMBOLUS CLINICAL HISTORY: Rule out dissection TECHNIQUE: Helical axial scans of the chest during dynamic intravenous contrast injection. Pulmonary embolism protocol. Multiplanar reformats. Postprocessing MIP images. One or more of the following rad iation dose reduction techniques were used for this examination: automated exposure control, adjustme nt of the mA and/or kV according to patient size, use of iterative reconstruction technique. COMPARISON: Chest x-ray obtained earlier the same day. FINDINGS: Pulmonary arteries: There is adequate enhancement of the pulmonary arterial system, however, respirat ory motion artifact limits evaluation beyond the proximal lobar branches. As visualized, no definite central or proximal lobar branch pulmonary emboli are identified. Mediastinum: Heart is enlarged. Coronary artery and aortic atherosclerotic calcifications noted. The re is inadequate opacification of the aorta to evaluate for aortic dissection. Aneurysmal dilatation of the ascending aorta to approximately 4.3 cm. No pericardial effusion. Scattered borderline enlarg ed mediastinal lymph nodes. Large hiatal hernia. Reflux of contrast into the IVC suggesting a degree of heart failure. Correlate with echocardiography. Lung parenchyma: Dependent atelectatic changes/scarring. Subcentimeter calcified granuloma periphera l left lower lobe. No dominant consolidations. Pleura: No sizable pleural effusion or pneumothorax. Chest wall and axillae: No appreciable axillary adenopathy. Upper abdomen: No acute findings as visualized. Other: Age indeterminate but somewhat chronic appearing compression deformity of the T3 vertebral bod y. IMPRESSION: Respiratory motion artifact limits evaluation. No definite evidence of pulmonary embolism through th e proximal lobar branches. Other findings as above. If there is persistent concern for aortic dissection, dedicated CT angiography of the chest, abdomen and pelvis may be obtained to evaluate.
[2024-09-16] VITALS (10 sets, daily range): BP systolic 101–128; BP diastolic 62–84; PULSE 46–113; RESP 16–20; TEMP 97.2–98.3; O2SAT 94–97
[2024-09-16] MEDS: DIGOXIN 0.125 MG TAB PO SCH (09:17)
[2024-09-16] MEDS: SPIRONOLACTONE 25 MG TAB PO SCH (09:18)
[2024-09-16] MEDS: VALSARTAN 80 MG TAB PO SCH (09:20)
[2024-09-16] MEDS: EMPAGLIFLOZIN 10 MG TAB PO SCH (09:20)
[2024-09-16] MEDS: IOHEXOL 350 MG/ML 100ML IJ ONE (09:24)
[2024-09-16] MEDS: FAMOTIDINE (10MG/ML) 2ML VL IV SCH (09:24)
--- NOTE | 2024-09-16 15:10 | DVHPN2 ---
Consult Progress Note Subjective Other Systems: Patient remains in atrial fibrillation with uncontrolled rate Objective vital signs Vital Sign Date Time Temp Pulse Resp B/P (MAP) Pulse Ox O2 Delivery O2 Flow Rate FiO2 09/16/24 13:15 97.5 50 20 128/73 (91) 96 97.5 09/16/24 10:00 Room Air 0.0 09/16/24 10:00 21 Total Intake and Output 09/15/24 09/15/24 09/16/24 15:00 23:00 07:00 Intake Total 716 ml 400 ml Output Total 820 ml Balance 716 ml -420 ml medications Current Medications Medications Dose Ordered Sig/Tiffany Route Start Time Stop Time Status Last Admin Dose Admin Methylprednisolone Sodium Succinate 40 mg Q8HR IV 09/14/24 22:00 09/16/24 05:11 40 MG Carvedilol 3.125 mg Q12HR PO 09/14/24 22:00 09/16/24 09:18 3.125 MG Sodium Chloride 10 ml Q8HR IV 09/14/24 22:00 09/16/24 05:15 10 ML Acetaminophen/ Hydrocodone Bitart 1 tab Q4HP PRN PO 09/14/24 18:30 Ondansetron HCl 4 mg Q4HP PRN IV 09/14/24 18:30 Docusate Sodium 100 mg BIDPRN PRN PO 09/14/24 18:30 Acetaminophen 650 mg Q6HP PRN PO 09/14/24 18:30 09/16/24 09:16 650 MG Nitroglycerin 0.4 mg Q5MINP PRN SL 09/14/24 18:30 Morphine Sulfate 2 mg Q30M PRN IV 09/14/24 18:30 Albuterol 2.5 mg Q6HPRN PRN NEB 09/15/24 13:45 Ipratropium [place] 0.5 mg Q6HPRN PRN NEB 09/15/24 13:45 Spironolactone 12.5 mg DAILY PO 09/16/24 10:00 09/16/24 09:18 12.5 MG Empaglifozin 10 mg DAILY PO 09/16/24 10:00 09/16/24 09:20 10 MG Valsartan 40 mg DAILY PO 09/16/24 10:00 09/16/24 09:20 40 MG Furosemide 20 mg BIDD IV 09/15/24 18:00 09/16/24 05:13 20 MG Atorvastatin Calcium 40 mg HS PO 09/15/24 22:00 09/15/24 21:57 40 MG Digoxin 0.125 mg DAILY PO 09/16/24 10:00 09/16/24 09:17 0.125 MG Famotidine 20 mg DAILY IV 09/16/24 10:00 Examination: GENERAL:Normal, LUNGS:Normal, CVS:Normal, NEURO:Normal laboratory and microbiology Laboratory Tests 09/15/24 05:52 Test 09/15/24 05:52 Range/Units Serum Glucose 143 H 74-106 mg/dL Problem List/Assessment/Plan Problem List/Assessment/Plan Atrial fibrillation with rapid ventricular rate, off NOAC/AC therapy at home Acute on chronic decompensated HFrEF, newly diagnosed Rule out aortic dissection COPD with current tobacco use Borderline thrombocytopenia Acute kidney injury Hard of hearing Plan/Recommendation (Dr. Abraham) Case discussed in full detail with Dr. Abraham. We will continue further cardiac evaluation with a transthoracic echocardiogram to evaluate cardiac function. In the meantime, continue GDMT for CHF and uptitrate as tolerated. Initiate Preload and afterload reduction in combination with strict I&Os and fluid restriction. Continue with lipid-lowering agent. Continue rate control with beta-harshil and digoxin therapy as HR is fluctuating up to the 160s bpm. We will switch from Coreg to metoprolol to have a larger window to up-titrate dose given borderline BP. Hold NOAC therapy with low-dose Eliquis until dissection ruled out ([id number] Score 4 points, HAS-BLED Score 2 points). Hold antiarrhythmic therapy given onset of symptoms and lack of AC therapy at home. The patient was initially taken for a CT angiogram of the chest to rule out dissection. Report was not able to identify any aortic dissection given that there was inadequate opacification and CT should also include abdomen and pelvis. Spoke with tele radiologist (off-site), who states that the patient will need to undergo a chest/abdomen/pelvis CT with contrast to rule out dissection. Given recent contrast, the patient we will need to wait until tomorrow per radiologist. We will reorder chest/abdomen/pelvis CT to rule out aortic dissection. Monitor ECG changes closely and notify. Thank you for allowing us to participate in this patient's care. Please call if you have any questions or concerns. This medical document was created using an electronic medical record system with voice recognition software and computerized dictation system. Although this document has been carefully reviewed, there might still be some phonetic and typographical errors. Occasional wrong-word or ``sound-alike substitutions may have occurred due to the inherent limitations of voice recognition software. These areas are purely typographical due to imperfections of the software programs and do not reflect any compromise in the patient's medical care. Please read the chart carefully and recognize, using context, where these substitutions have occurred. Plan discussed with: Patient, Other (Bedside RN) Date of Service: Sep 16, 2024 Billing Provider: TOÑITO RIVERA Common Visit Codes: [id number] INP/OBS CARE(HIGH) TOÑITO RIVERA Sep 16, 2024 15:10
--- NOTE | 2024-09-16 20:37 | DVHINCON2 ---
Date of service: Sep 16, 2024 Referring Physician PILY ANGEL MD Reason for Consultation Transfer of care History of Present Illness Rohan Fabian is a 74-year-old M with a Past Medical History pertinent for Left eye vision loss, COPD, AFib and Congestive Heart Failure who presented to the hospital with complaint of shortness of breaths for the past 2 weeks. Patient was brought to the hospital by ambulance from local family clinic after patient was found with abnormal EKG showing A-Fib. While in ED, labs were remarkable for WBC 6.0, Platelets 159, Na 143, K 4.3, BUN 29, Creatinine 1.39, GFR 53, Glucose 112, Calcium 10.6, BNP 633.95, Troponin 8. Chest x-ray reported postoperative changes of the heart and borderline cardiomegaly, no acute intrathoracic process. CT Angio Chest reported respiratory motion artifact limits evaluation; no definite evidence of pulmonary embolism through the proximal lobar branches. Family History: Patient reports no known family medical history. Allergies: Coded Allergies: NO KNOWN ALLERGIES (Unverified , 09/14/24) Current Medications Current Medications Medications (Trade) Dose Ordered Sig/Tiffany Route PRN Reason Start Time Stop Time Status Last Admin Spironolactone (Aldactone) 12.5 mg DAILY PO 09/16/24 10:00 09/16/24 09:18 Empaglifozin (Jardiance) 10 mg DAILY PO 09/16/24 10:00 09/16/24 09:20 Valsartan (Diovan) 40 mg DAILY PO 09/16/24 10:00 09/16/24 09:20 Apixaban (Eliquis) 2.5 mg BID PO 09/15/24 22:00 09/15/24 18:34 DC Atorvastatin Calcium (Lipitor) 40 mg HS PO 09/15/24 22:00 09/15/24 21:57 Digoxin (Lanoxin Tablet) 0.125 mg DAILY PO 09/16/24 10:00 09/16/24 09:17 Famotidine (Pepcid Injection) 20 mg DAILY IV 09/16/24 10:00 Metoprolol Tartrate (Lopressor Tablet) 25 mg BID PO 09/16/24 22:00 Review of Systems Review of Systems Constitutional: Yes: Weakness; No: Fever, Chills, Sweats, Malaise, Other Respiratory: Shortness of breath, SOB with excertion, Other (SOB at rest); No: Cough, Dry, Wheezing, Hemoptysis, Pleuritic Pain, Sputum, Wheezing Cardiovascular: Other (AFib); No: Chest Pain, Palpitations, Orthopnea, Paroxysmal Noc. Dyspnea, Edema, Lt Headedness All other systems reviewed and negative unless otherwise noted in HPI. Vital Signs Vital Signs Date Time Temp Pulse Resp B/P (MAP) Pulse Ox O2 Delivery O2 Flow Rate FiO2 09/16/24 18:00 130/81 09/16/24 16:31 97.2 80 18 95 97.2 09/16/24 10:00 Room Air 0.0 09/16/24 10:00 21 Physical Exam Vitals and nursing notes reviewed. General Appearance: Alert, Oriented X3, Cooperative, No acute distress HEENT: Atraumatic, PERRLA, EOMI, Mucous membr. moist/pink Respiratory: Clear to auscultation, Normal air movement Cardiovascular: Regular rate, Normal S1, Normal S2, No murmurs Abdominal: Normal bowel sounds, Soft, No tenderness, No hepatospenomegaly Extremities: No clubbing, No cyanosis, No edema, Normal pulses, No tenderness/swelling Skin: No rashes, No breakdown, No significant lesion Neuro: Normal speech, Normal tone, Sensation intact, Cranial nerves 3-12 NL, Reflexes 2+, Other (Generalized weakness) Psych/Mental Status: Mental status NL, Mood NL Labs/Diagnostic Data Labs Test 09/16/24 04:55 09/15/24 22:33 09/15/24 14:26 09/15/24 05:52 Range/Units Digoxin Level 0.97 0.8-2 ng/mL Influenza Type A Antigen Negative Negative Influenza Type B Antigen Negative Negative SARS-CoV-2 Antigen (Rapid) Negative NEGATIVE D-Dimer, Quantitative 5.01 H 0.0-0.49 mg/L FEU White Blood Count 5.2 4.4-10.8 10^3/uL Red Blood Count 4.09 L 4.5-5.90 10^6/uL Hemoglobin 13.9 13.5-17.5 g/dL Hematocrit 40.2 L 41.0-53.0 % Mean Corpuscular Volume 98.3 80.0-100.0 fL Mean Corpuscular Hemoglobin 34.1 H 28.0-32.0 pg Mean Corpuscular Hemoglobin Concent 34.6 32.0-36.0 g/dL Red Cell Distribution Width 14.6 H 11.8-14.3 % Platelet Count 133 L 140-450 10^3/uL Mean Platelet Volume 8.3 6.9-10.8 fL Neutrophils (%) (Auto) 88.8 H 37.0-80.0 % Lymphocytes (%) (Auto) 9.3 L 10.0-50.0 % Monocytes (%) (Auto) 1.8 0.0-12.0 % Eosinophils (%) (Auto) 0.0 0.0-7.0 % Basophils (%) (Auto) 0.1 0.0-2.0 % Neutrophils # (Auto) 4.6 1.6-8.6 10 ^3/uL Lymphocytes # (Auto) 0.5 0.4-5.4 10 ^3/uL Monocytes # (Auto) 0.1 0-1.3 10 ^3/uL Eosinophils # (Auto) 0 0-0.8 10 ^3/uL Basophils # (Auto) 0 0-0.2 10 ^3/uL Nucleated Red Blood Cells 0.0 % Sodium Level 141 136-145 mmol/L Potassium Level 4.3 3.5-5.1 mmol/L Chloride Level 107 98-107 mmol/L Carbon Dioxide Level 23 20-31 mmol/L Anion Gap 11 5-15 Blood Urea Nitrogen 30 H 9-23 mg/dL Creatinine 1.30 0.700-1.30 mg/dL Glomerular Filtration Rate Calc 57 >90 mL/min BUN/Creatinine Ratio 23.1 H 10.0-20.0 Serum Glucose 143 H 74-106 mg/dL Hemoglobin A1c 5.3 <5.7 % A1C Calcium Level 10.3 8.7-10.4 mg/dL Magnesium Level 2.2 1.6-2.6 mg/dL Total Bilirubin 0.3 0.2-1.0 mg/dL Aspartate Amino Transferase (AST) 23 13-40 U/L Alanine Aminotransferase (ALT) 16 7-40 U/L Alkaline Phosphatase 63 46-116 U/L Total Protein 6.8 5.7-8.2 g/dL Albumin 4.2 3.2-4.8 g/dL Triglycerides Level 45 < 150 mg/dL Cholesterol Level 223 H < 200 mg/dL LDL Cholesterol 150 H < 100 mg/dL HDL Cholesterol 71 H 40-59 mg/dL Thyroid Stimulating Hormone (TSH) 0.82 0.55-4.78 uIU/mL Test 09/14/24 18:29 09/14/24 16:28 09/14/24 15:23 Range/Units Urine Color Colorless Yellow Urine Clarity Clear Clear Urine pH 6.0 5.0-9.0 Urine Specific [place] 1.008 1.001-1.035 Urine Protein Negative Negative Urine Ketones 1+ H Negative Urine Blood 1+ H Negative /uL Urine Nitrite Negative Negative Urine Bilirubin Negative Negative Urine Urobilinogen Normal Negative mg/dL Urine Leukocyte Esterase Negative Negative /uL Urine RBC 8 0 - 3 /hpf Urine Microscopic WBC < 1 0-3 /HPF Urine Squamous Epithelial Cells None seen <5 /hpf Urine Bacteria None seen None Seen /hpf Urine Glucose Normal Normal mg/dL Troponin I High Sensitivity 8 </=54 ng/L B-Type Natriuretic Peptide 633.95 0-100 pg/mL Assessment Atrial fibrillation with rapid ventricular rate Acute on chronic decompensated HFrEF, newly diagnosed Rule out aortic dissection COPD with current tobacco use Borderline thrombocytopenia Acute kidney injury Hard of hearing Plan/Recommendation Continue current supportive medical care. Monitor in Telemetry unit. Cardiology following. Patient continued on Lasix, Coreg. Breathing treatments. Albuterol, Atrovent. Solu-Medrol [address] Angio Aortic Abdominal ordered/pending. Daily lab monitoring. Electrolyte replacement prn. DVT prophylaxis. Additional plan as per the hospital course. Plan discussed with: Patient, Other (RN) LUISA CHAVARRIA DO Sep 16, 2024 20:37
[2024-09-16] MEDS: HYDROcodone-ACET 5/325MG TAB PO PRN (21:03)
[2024-09-16] MEDS: METOPROLOL TARTRATE 25 MG TAB PO SCH (21:11)
[2024-09-17] VITALS (9 sets, daily range): BP systolic 100–130; BP diastolic 67–95; PULSE 50–104; RESP 18–20; TEMP 97.9–98.7; O2SAT 93–96
[2024-09-17 07:59] LABS: Chloride 102 mmol/L (98-107); Potassium 4.2 mmol/L (3.5-5.1); Sodium 138 mmol/L (136-145)
[2024-09-17 08:00] LABS: Anion Gap 11 (5-15); Basophils # (auto) 0 10 ^3/uL (0-0.2); Basophils % (auto) 0.1 % (0.0-2.0); Carbon Dioxide 25 mmol/L (20-31); Eosinophils # (auto) 0 10 ^3/uL (0-0.8); Hemoglobin 15.7 g/dL (13.5-17.5); Lymphocytes # (auto) 0.5 10 ^3/uL (0.4-5.4); Lymphocytes % (auto) 5.6 % (10.0-50.0); Mean Corpuscular Hemoglobin 33.4 pg (28.0-32.0); Mean Corpuscular Hgb Conc. 34.2 g/dL (32.0-36.0); Mean Corpuscular Volume 97.8 fL (80.0-100.0); Monocytes # (auto) 0.3 10 ^3/uL (0-1.3); Neutrophils # (auto) 8.6 10 ^3/uL (1.6-8.6); Neutrophils % (auto) 91.3 % (37.0-80.0); Nucleated Red Blood Cells % 0.1 %; Platelet Count (auto) 158 10^3/uL (140-450); Red Cell Distribution Width 14.7 % (11.8-14.3); White Blood Cell 9.4 10^3/uL (4.4-10.8)
[2024-09-17 08:06] LABS: Magnesium 2.5 mg/dL (1.6-2.6)
[2024-09-17 08:10] LABS: Blood Urea Nitrogen 44 mg/dL (9-23); Glucose 147 mg/dL (74-106)
[2024-09-17] MEDS ORDERED: IOHEXOL 350 MG/ML 100ML IJ ONE (19:14)
--- NOTE | 2024-09-17 20:51 | DVHPN2 ---
Progress Note - Dictate Date Seen: Sep 17, 2024 Has the PT tested + for MRSA If YES, has PT been informed?: No Medical Necessity Reason Pt with a Central, PICC or Fol: No Subjective Patient was seen and evaluated in follow up. No acute events overnight. Patient is currently stable on RA. WBC increased to 9.4. Creatinine 1.42 with BUN of 44. vital signs Vital Sign Date Time Temp Pulse Resp B/P (MAP) Pulse Ox O2 Delivery O2 Flow Rate FiO2 09/17/24 20:11 94 Room Air* 0 21 09/17/24 17:25 100/74 09/17/24 16:36 98.4 56 18 98.4 Total Intake and Output 09/16/24 09/16/24 09/17/24 15:00 23:00 07:00 Intake Total 450 ml 400 ml Output Total 320 ml 800 ml Balance 130 ml -400 ml medications Current Medications Medications Dose Ordered Sig/Tiffany Route Start Time Stop Time Status Last Admin Dose Admin Methylprednisolone Sodium Succinate 40 mg Q8HR IV 09/14/24 22:00 09/17/24 14:10 40 MG Sodium Chloride 10 ml Q8HR IV 09/14/24 22:00 09/17/24 14:10 10 ML Acetaminophen/ Hydrocodone Bitart 1 tab Q4HP PRN PO 09/14/24 18:30 09/17/24 17:26 1 TAB Ondansetron HCl 4 mg Q4HP PRN IV 09/14/24 18:30 Docusate Sodium 100 mg BIDPRN PRN PO 09/14/24 18:30 Acetaminophen 650 mg Q6HP PRN PO 09/14/24 18:30 09/17/24 05:32 650 MG Nitroglycerin 0.4 mg Q5MINP PRN SL 09/14/24 18:30 Morphine Sulfate 2 mg Q30M PRN IV 09/14/24 18:30 Albuterol 2.5 mg Q6HPRN PRN NEB 09/15/24 13:45 Ipratropium [place] 0.5 mg Q6HPRN PRN NEB 09/15/24 13:45 Spironolactone 12.5 mg DAILY PO 09/16/24 10:00 09/17/24 10:58 12.5 MG Empaglifozin 10 mg DAILY PO 09/16/24 10:00 09/17/24 10:59 10 MG Valsartan 40 mg DAILY PO 09/16/24 10:00 09/17/24 11:01 40 MG Furosemide 20 mg BIDD IV 09/15/24 18:00 09/17/24 17:25 20 MG Atorvastatin Calcium 40 mg HS PO 09/15/24 22:00 09/16/24 21:03 40 MG Digoxin 0.125 mg DAILY PO 09/16/24 10:00 09/16/24 09:17 0.125 MG Famotidine 20 mg DAILY IV 09/16/24 10:00 Metoprolol Tartrate 25 mg BID PO 09/16/24 22:00 09/17/24 11:02 25 MG Nicotine 1 patch DAILY TD 09/18/24 10:00 objective Vitals and nursing notes reviewed. General Appearance: Alert, Oriented X3, Cooperative, No acute distress HEENT: Atraumatic, PERRLA, EOMI, Mucous membr. moist/pink Respiratory: Clear to auscultation, Normal air movement Cardiovascular: Regular rate, Normal S1, Normal S2, No murmurs Abdominal: Normal bowel sounds, Soft, No tenderness, No hepatospenomegaly Extremities: No clubbing, No cyanosis, No edema, Normal pulses, No tenderness/swelling Skin: No rashes, No breakdown, No significant lesion Neuro: Normal speech, Normal tone, Sensation intact, Cranial nerves 3-12 NL, Reflexes 2+, Other (Generalized weakness) Psych/Mental Status: Mental status NL, Mood NL laboratory and microbiology Laboratory Tests 09/17/24 07:01 Test 09/17/24 07:01 Range/Units Serum Glucose 147 H 74-106 mg/dL Problem List Atrial fibrillation with rapid ventricular rate Acute on chronic decompensated HFrEF, newly diagnosed Rule out aortic dissection COPD with current tobacco use Borderline thrombocytopenia Acute kidney injury Hard of hearing Assessment/Plan Continue current supportive medical care. Cardiology following. Patient continued on Lasix, Coreg. CT Chest Abdomen Pelvis. Await 48 hours between administration of IV contrast. Breathing treatments. Albuterol, Atrovent. Solu-Medrol 40 mg IV q8h. Continue home medications. Daily lab monitoring. Electrolyte replacement prn. DVT prophylaxis. Additional plan as per the hospital course. Dietary Evaluation Review Comments: Continue current plan of care Expected Outcomes/Goals: Pt will meet >75% estimated needs Fu 3-5 days Plan discussed with: Patient, Other ([facility]) LUISA CHAVARRIA DO Sep 17, 2024 20:51
--- NOTE | 2024-09-17 21:53 | DVH ---
Exam: CT CHEST/AB/PL W CON- IV ONLY History: R/O AORTIC DISSECTION Comparison Study: None Contrast: Type of contrast: Contrast injected: Contrast wasted: 0 TECHNIQUE: Multidetector CT of chest with IV contrast. Radiation Dose Information: CT Dose: CTDI volume is 56.24 mGy. Dose-length product is 966.96 mGy*cm FINDINGS: The ascending aorta is dilated 5.48 cm. There are calcifications in the left anterior descending [place] artery and also in the left circumflex coronary artery. Patient has a large hiatal hernia and th ere is large portion of the proximal stomach is herniated into the mediastinum. Filled with material There is atherosclerotic disease throughout the aortic arch and descending aorta with significant shilpa unt of soft plaque in the aortic arch Is also a large amount of soft plaque seen in the abdominal aorta. The abdominal aorta demonstrates a aneurysm with a large amount of soft plaque measuring 4.31 by 3.56 by 5.4 6 cm. This is in the infr arenal aorta. This also aneurysmal dilations of the common iliacs right common iliac measures 3.3 by 2.9 cm in the left common iliac measures 2.1 by 1.7 cm. Patient has innumerable diverticuli is dense stool seen in the colon I do not see definite diverticul itis bladder is unremarkable. Prostate appears to be unremarkable . There are simple cysts in both kidneys. Adrenals unremarkable the spleen and liver are generally unre markable the pancreas demonstrates atrophic changes gallbladder is normal No evidence for pulmonary embolus. IMPRESSION:Dilated anterior ascending aorta. There are coronary artery calcifications. There is a large amount of plaque seen in the aortic arch. There is a significant aneurysm involving the abdominal aorta. 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 No evidence for dissection. No evidence for pulmonary embolus.
[2024-09-18] VITALS (10 sets, daily range): BP systolic 101–122; BP diastolic 69–83; PULSE 60–130; RESP 16–20; TEMP 96.1–98.6; O2SAT 93–98
[2024-09-18] MEDS: NICOTINE 14 MG/24HR TOPICAL PATCH TD SCH (09:47)
[2024-09-18] MEDS: DOCUSATE SOD 100 MG CAP PO PRN (09:56)
--- NOTE | 2024-09-18 11:45 | DVHPN2 ---
Consult Progress Note Subjective Other Systems: Patient in atrial fibrillation with controlled rate while sitting. Patient goes into uncontrolled atrial fibrillation when walking around. Objective vital signs Vital Sign Date Time Temp Pulse Resp B/P (MAP) Pulse Ox O2 Delivery O2 Flow Rate FiO2 09/18/24 09:47 83 107/74 09/18/24 09:06 96.1 20 94 96.1 09/18/24 08:09 Room Air* 0 21 Total Intake and Output 09/17/24 09/17/24 09/18/24 15:00 23:00 07:00 Intake Total 500 ml 0 ml Output Total 700 ml 550 ml Balance -200 ml -550 ml medications Current Medications Medications Dose Ordered Sig/Tiffany Route Start Time Stop Time Status Last Admin Dose Admin Methylprednisolone Sodium Succinate 40 mg Q8HR IV 09/14/24 22:00 09/18/24 05:53 40 MG Sodium Chloride 10 ml Q8HR IV 09/14/24 22:00 09/18/24 05:51 10 ML Acetaminophen/ Hydrocodone Bitart 1 tab Q4HP PRN PO 09/14/24 18:30 09/17/24 17:26 1 TAB Ondansetron HCl 4 mg Q4HP PRN IV 09/14/24 18:30 Docusate Sodium 100 mg BIDPRN PRN PO 09/14/24 18:30 09/18/24 09:56 100 MG Acetaminophen 650 mg Q6HP PRN PO 09/14/24 18:30 09/17/24 05:32 650 MG Nitroglycerin 0.4 mg Q5MINP PRN SL 09/14/24 18:30 Morphine Sulfate 2 mg Q30M PRN IV 09/14/24 18:30 Albuterol 2.5 mg Q6HPRN PRN NEB 09/15/24 13:45 Ipratropium [place] 0.5 mg Q6HPRN PRN NEB 09/15/24 13:45 Spironolactone 12.5 mg DAILY PO 09/16/24 10:00 09/18/24 09:43 12.5 MG Empaglifozin 10 mg DAILY PO 09/16/24 10:00 09/18/24 09:46 10 MG Valsartan 40 mg DAILY PO 09/16/24 10:00 09/17/24 11:01 40 MG Furosemide 20 mg BIDD IV 09/15/24 18:00 09/18/24 05:53 20 MG Atorvastatin Calcium 40 mg HS PO 09/15/24 22:00 09/17/24 21:53 40 MG Digoxin 0.125 mg DAILY PO 09/16/24 10:00 09/16/24 09:17 0.125 MG Famotidine 20 mg DAILY IV 09/16/24 10:00 09/18/24 09:46 20 MG Metoprolol Tartrate 25 mg BID PO 09/16/24 22:00 09/17/24 21:54 25 MG Nicotine 1 patch DAILY TD 09/18/24 10:00 Examination: GENERAL:Normal, LUNGS:Normal, CVS:Normal, NEURO:Normal laboratory and microbiology Laboratory Tests 09/17/24 07:01 Test 09/17/24 07:01 Range/Units Serum Glucose 147 H 74-106 mg/dL Problem List/Assessment/Plan Problem List/Assessment/Plan Atrial fibrillation with rapid ventricular rate, off NOAC/AC therapy at home Acute on chronic decompensated HFrEF, NYHA class III, newly diagnosed Dyslipidemia Ruled out aortic dissection Aorta aneurysm COPD with current tobacco use Acute kidney injury Hard of hearing Plan/Recommendation (Dr. Abraham) Case discussed in full detail with Dr. Abraham. Transthoracic echocardiogram reveals EF 25-30% with global hypokinesis. Continue GDMT for CHF and uptitrate as tolerated. Continue Preload and afterload reduction in combination with strict I&Os and fluid restriction. Continue with lipid-lowering agent. Continue rate control with beta-harshil and digoxin therapy as HR is fluctuating up to the 160s bpm. [id number] Score 4 points, HAS-BLED Score 2 points. Initiate NOAC therapy. It was worth noting, the patient has been refusing many of his medications, in which it has been difficult to control the patient's heart rate. CT ruled out aortic dissection but patient was incidentally found to have an abdominal aorta aneurysm measuring approximately4.5-4.7cm (Width) X 6.6cm (diameter). We will recommend for the patient to have a repeat CT in approximately 6-9 months to evaluate size at that time Thank you for allowing us to care for this patient. Please call with any questions or concerns. This medical document was created using an electronic medical record system with voice recognition software and computerized dictation system. Although this document has been carefully reviewed, there might still be some phonetic and typographical errors. Occasional wrong-word or ``sound-alike substitutions may have occurred due to the inherent limitations of voice recognition software. These areas are purely typographical due to imperfections of the software programs and do not reflect any compromise in the patient's medical care. Please read the chart carefully and recognize, using context, where these substitutions have occurred. Plan discussed with: Patient Dietary Evaluation Review Comments: Continue current plan of care Expected Outcomes/Goals: Pt will meet >75% estimated needs Fu 3-5 days Date of Service: Sep 18, 2024 Billing Provider: TOÑITO RIVERA Common Visit Codes: [id number] INP/OBS CARE(HIGH) TOÑITO RIVERA Sep 18, 2024 11:45
--- NOTE | 2024-09-18 12:22 | DVHSR ---
APPROVED REPORT EXAM: Two-dimensional and M-mode echocardiogram with Doppler and color Doppler. Blood Pressure: 102/68 mmHg INDICATION Heart Failure RISK FACTORS Height: 5'9", Weight: 155 DIMENSIONS LVDd5.2 (3.8-5.7cm)LA (2D)5.0 (1.9-4.0cm)Aortic Root4.6 (2.0-3.7cm) LVDs4.3 (2.5-4.0cm)LA (MM) (1.9-4.0cm)Aortic Cusp Exc2.0 (1.5-2.0cm) EF (%) 38.0 (55-70%)Rt. Atrium5.3 (1.9-4.0cm)Asc. Aorta4.3 cm IVSd0.9 (0.7-1.1cm)RV (D) (1.8-2.4cm) PWd1.0 (0.7-1.1cm) Mitral Valve MitralMitral Stenosis E/A ratio0.02D MVAcm2 Aortic Valve Aortic ValveAortic Stenosis V10.68m/Jolynn Mean GR.2mmHg V20.90m/Jolynn Peak GR.3mmHg LVOT Diameter2.4 (1.8-2.4cm)Doppler AVA3.42cm2 Pulmonic Valve V20.76m/s Tricuspid Valve TR Velocity1.91m/s [id number] Conclusion Technically good study. Undetermined rhythm. Biatrial enlargement. Notable aortic root enlargement with dilation of the sinuses of Valsalva. Biv entricular enlargement. Mild thickening of the mitral leaflets. The aortic tricuspid and pulmonic or structurally normal. Left ventricular function is diminished. EF is about 25-30%. Underlying global hypokinesis. Mild mitral insufficiency. Mild tricuspid regurgitation. Mild pulmonic insufficiency. No pericardial effusion masses or vegetations.
--- NOTE | 2024-09-18 20:19 | DVHPN2 ---
Progress Note - Dictate Date Seen: Sep 18, 2024 Has the PT tested + for MRSA If YES, has PT been informed?: No Medical Necessity Reason Pt with a Central, PICC or Fol: No Subjective Patient was seen and evaluated in follow up. No acute events overnight. Patient noted with uncontrolled atrial fibrillation while walking around, HR of 150-190. Attempting to sign out AMA to go smoke per nursing staff. Patient has been refusing many of his medications. 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 vital signs Vital Sign Date Time Temp Pulse Resp B/P (MAP) Pulse Ox O2 Delivery O2 Flow Rate FiO2 09/18/24 18:07 110/83 09/18/24 17:00 97.5 60 20 98 97.5 09/18/24 14:48 0.0 21 09/18/24 10:00 Room Air* Total Intake and Output 09/17/24 09/17/24 09/18/24 15:00 23:00 07:00 Intake Total 500 ml 0 ml Output Total 700 ml 550 ml Balance -200 ml -550 ml medications Current Medications Medications Dose Ordered Sig/Tiffany Route Start Time Stop Time Status Last Admin Dose Admin Methylprednisolone Sodium Succinate 40 mg Q8HR IV 09/14/24 22:00 09/18/24 05:53 40 MG Sodium Chloride 10 ml Q8HR IV 09/14/24 22:00 09/18/24 15:00 10 ML Acetaminophen/ Hydrocodone Bitart 1 tab Q4HP PRN PO 09/14/24 18:30 09/17/24 17:26 1 TAB Ondansetron HCl 4 mg Q4HP PRN IV 09/14/24 18:30 Docusate Sodium 100 mg BIDPRN PRN PO 09/14/24 18:30 09/18/24 09:56 100 MG Acetaminophen 650 mg Q6HP PRN PO 09/14/24 18:30 09/17/24 05:32 650 MG Nitroglycerin 0.4 mg Q5MINP PRN SL 09/14/24 18:30 Morphine Sulfate 2 mg Q30M PRN IV 09/14/24 18:30 Albuterol 2.5 mg Q6HPRN PRN NEB 09/15/24 13:45 Cancel Ipratropium [place] 0.5 mg Q6HPRN PRN NEB 09/15/24 13:45 Cancel Spironolactone 12.5 mg DAILY PO 09/16/24 10:00 09/18/24 09:43 12.5 MG Empaglifozin 10 mg DAILY PO 09/16/24 10:00 09/18/24 09:46 10 MG Valsartan 40 mg DAILY PO 09/16/24 10:00 09/17/24 11:01 40 MG Furosemide 20 mg BIDD IV 09/15/24 18:00 09/18/24 18:07 20 MG Atorvastatin Calcium 40 mg HS PO 09/15/24 22:00 09/17/24 21:53 40 MG Digoxin 0.125 mg DAILY PO 09/16/24 10:00 09/16/24 09:17 0.125 MG Famotidine 20 mg DAILY IV 09/16/24 10:00 09/18/24 09:46 20 MG Metoprolol Tartrate 25 mg BID PO 09/16/24 22:00 09/17/24 21:54 25 MG Nicotine 1 patch DAILY TD 09/18/24 10:00 Apixaban 5 mg BID PO 09/18/24 22:00 objective Vitals and nursing notes reviewed. General Appearance: Alert, Oriented X3, Cooperative, No acute distress HEENT: Atraumatic, PERRLA, EOMI, Mucous membr. moist/pink Respiratory: Clear to auscultation, Normal air movement Cardiovascular: Regular rate, Normal S1, Normal S2, No murmurs Abdominal: Normal bowel sounds, Soft, No tenderness, No hepatospenomegaly Extremities: No clubbing, No cyanosis, No edema, Normal pulses, No tenderness/swelling Skin: No rashes, No breakdown, No significant lesion Neuro: Normal speech, Normal tone, Sensation intact, Cranial nerves 3-12 NL, Reflexes 2+, Other (Generalized weakness) Psych/Mental Status: Mental status NL, Mood NL laboratory and microbiology Laboratory Tests 09/17/24 07:01 Test 09/17/24 07:01 Range/Units Serum Glucose 147 H 74-106 mg/dL Problem List Atrial fibrillation with rapid ventricular rate Acute on chronic decompensated HFrEF, newly diagnosed Rule out aortic dissection COPD with current tobacco use Borderline thrombocytopenia Acute kidney injury Hard of hearing Assessment/Plan Continue current supportive medical care. Cardiology following. CT ruled out aortic dissection, incidental finding of abdominal aorta aneurysm measuring approximately 4.5-4.7 cm (width) x 6.6 cm (diameter). Patient is recommended for repeat CT in 6-9 months. Patient continued on Lasix, Coreg. Breathing treatments. Albuterol, Atrovent. Solu-Medrol 40 mg IV q8h. Daily lab monitoring; electrolyte replacement prn. Continue home medications. Full Dose Anticoagulation. Nicotine patch. Additional plan as per the hospital course. Dietary Evaluation Review Comments: Continue current plan of care Expected Outcomes/Goals: Pt will meet >75% estimated needs Fu 3-5 days Plan discussed with: Patient, Other (RN) LUISA CHAVARRIA DO Sep 18, 2024 20:19
[2024-09-18] MEDS: APIXABAN 5 MG TAB PO SCH (21:33)
--- NOTE | 2024-09-18 22:28 | DVHPN2 ---
Consult Progress Note Subjective Other Systems: Patient was seen and evaluated in follow up. Patient in atrial fibrillation with controlled rate while sitting. Patient goes into uncontrolled atrial fibrillation when walking around. CT Chest/ABD/PEL shows dilated anterior ascending aorta. There are coronary artery calcifications. There is a large amount of plaque seen in the aortic arch. There is a significant aneurysm involving the abdominal aorta. 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 No evidence for dissection. No evidence for pulmonary embolus. Telemetry reviewed. Objective vital signs Vital Sign Date Time Temp Pulse Resp B/P (MAP) Pulse Ox O2 Delivery O2 Flow Rate FiO2 09/18/24 14:48 76 16 101/80 93 0.0 21 09/18/24 13:00 97.5 97.5 09/18/24 10:00 Room Air* Total Intake and Output 09/17/24 09/17/24 09/18/24 15:00 23:00 07:00 Intake Total 500 ml 0 ml Output Total 700 ml 550 ml Balance -200 ml -550 ml medications Current Medications Medications Dose Ordered Sig/Tiffany Route Start Time Stop Time Status Last Admin Dose Admin Methylprednisolone Sodium Succinate 40 mg Q8HR IV 09/14/24 22:00 09/18/24 05:53 40 MG Sodium Chloride 10 ml Q8HR IV 09/14/24 22:00 09/18/24 05:51 10 ML Acetaminophen/ Hydrocodone Bitart 1 tab Q4HP PRN PO 09/14/24 18:30 09/17/24 17:26 1 TAB Ondansetron HCl 4 mg Q4HP PRN IV 09/14/24 18:30 Docusate Sodium 100 mg BIDPRN PRN PO 09/14/24 18:30 09/18/24 09:56 100 MG Acetaminophen 650 mg Q6HP PRN PO 09/14/24 18:30 09/17/24 05:32 650 MG Nitroglycerin 0.4 mg Q5MINP PRN SL 09/14/24 18:30 Morphine Sulfate 2 mg Q30M PRN IV 09/14/24 18:30 Albuterol 2.5 mg Q6HPRN PRN NEB 09/15/24 13:45 Cancel Ipratropium [place] 0.5 mg Q6HPRN PRN NEB 09/15/24 13:45 Cancel Spironolactone 12.5 mg DAILY PO 09/16/24 10:00 09/18/24 09:43 12.5 MG Empaglifozin 10 mg DAILY PO 09/16/24 10:00 09/18/24 09:46 10 MG Valsartan 40 mg DAILY PO 09/16/24 10:00 09/17/24 11:01 40 MG Furosemide 20 mg BIDD IV 09/15/24 18:00 09/18/24 05:53 20 MG Atorvastatin Calcium 40 mg HS PO 09/15/24 22:00 09/17/24 21:53 40 MG Digoxin 0.125 mg DAILY PO 09/16/24 10:00 09/16/24 09:17 0.125 MG Famotidine 20 mg DAILY IV 09/16/24 10:00 09/18/24 09:46 20 MG Metoprolol Tartrate 25 mg BID PO 09/16/24 22:00 09/17/24 21:54 25 MG Nicotine 1 patch DAILY TD 09/18/24 10:00 laboratory and microbiology Laboratory Tests 09/17/24 07:01 Test 09/17/24 07:01 Range/Units Serum Glucose 147 H 74-106 mg/dL Problem List/Assessment/Plan Problem List/Assessment/Plan Atrial fibrillation with rapid ventricular rate, off NOAC/AC therapy at home. Acute on chronic decompensated HFrEF, newly diagnosed. Rule out aortic dissection. COPD with current tobacco use. Borderline thrombocytopenia. Acute kidney injury. Hard of hearing. Plan/Recommendation Continued all current supportive medical care. Patient has been seen by Fiona Castillo NP on my behalf, her and I discussed the plan with the patient. Transthoracic echocardiogram reveals EF 25-30% with global hypokinesis. Continue GDMT for CHF and uptitrate as tolerated. Continue Preload and afterload reduction in combination with strict I&Os and fluid restriction. Continue with lipid-lowering agent. Continue rate control with beta-harshil and digoxin therapy as HR is fluctuating up to the 160s bpm. [id number] Score 4 points, HAS-BLED Score 2 points. Initiate NOAC therapy. It was worth noting, the patient has been refusing many of his medications, in which it has been difficult to control the patient's heart rate. CT ruled out aortic dissection but patient was incidentally found to have an abdominal aorta aneurysm measuring approximately4.5-4.7cm (Width) X 6.6cm (diameter). We will recommend for the patient to have a repeat CT in approximately 6-9 months to evaluate size at that time. Additional plan as per the hospital course. Plan discussed with: Patient Dietary Evaluation Review Comments: Continue current plan of care Expected Outcomes/Goals: Pt will meet >75% estimated needs Fu 3-5 days Date of Service: Sep 18, 2024 Billing Provider: MEHRDAD CHAVARRIA MD Cardiology Common Codes: [id number] HOSP CARE(High MEHRDAD CHAVARRIA MD Sep 18, 2024 16:48
[2024-09-19] VITALS (8 sets, daily range): BP systolic 104–135; BP diastolic 70–90; PULSE 64–129; RESP 15–20; TEMP 97.4–97.6; O2SAT 94–97
--- NOTE | 2024-09-19 20:02 | DVHPN2 ---
Progress Note - Dictate Date Seen: Sep 19, 2024 Has the PT tested + for MRSA If YES, has PT been informed?: No Medical Necessity Reason Pt with a Central, PICC or Fol: No Subjective Patient was seen and evaluated in follow up, accompanied by Yovani WALL. No acute events overnight. Patient complains of intermittent shortness of breath. Per RN, HR is resting between 120 and 150 bpm while sitting and goes as high as the 180's bpm when he stands or walks. Patient has been advised not to go outside and smoke, he has signed AMA for this. vital signs Vital Sign Date Time Temp Pulse Resp B/P (MAP) Pulse Ox O2 Delivery O2 Flow Rate FiO2 09/19/24 17:44 113/70 09/19/24 16:20 97.4 129 15 96 97.4 09/19/24 10:18 Room Air* 0 21 Total Intake and Output 09/18/24 09/18/24 09/19/24 15:00 23:00 07:00 Intake Total 500 ml 300 ml Output Total 325 ml 450 ml Balance 175 ml -150 ml medications Current Medications Medications Dose Ordered Sig/Tiffany Route Start Time Stop Time Status Last Admin Dose Admin Methylprednisolone Sodium Succinate 40 mg Q8HR IV 09/14/24 22:00 09/19/24 14:11 40 MG Sodium Chloride 10 ml Q8HR IV 09/14/24 22:00 09/19/24 14:11 10 ML Acetaminophen/ Hydrocodone Bitart 1 tab Q4HP PRN PO 09/14/24 18:30 09/17/24 17:26 1 TAB Ondansetron HCl 4 mg Q4HP PRN IV 09/14/24 18:30 Docusate Sodium 100 mg BIDPRN PRN PO 09/14/24 18:30 09/19/24 18:49 100 MG Acetaminophen 650 mg Q6HP PRN PO 09/14/24 18:30 09/17/24 05:32 650 MG Nitroglycerin 0.4 mg Q5MINP PRN SL 09/14/24 18:30 Morphine Sulfate 2 mg Q30M PRN IV 09/14/24 18:30 Albuterol 2.5 mg Q6HPRN PRN NEB 09/15/24 13:45 Cancel Ipratropium [place] 0.5 mg Q6HPRN PRN NEB 09/15/24 13:45 Cancel Spironolactone 12.5 mg DAILY PO 09/16/24 10:00 09/19/24 09:10 12.5 MG Empaglifozin 10 mg DAILY PO 09/16/24 10:00 09/19/24 09:12 10 MG Valsartan 40 mg DAILY PO 09/16/24 10:00 09/19/24 09:11 40 MG Furosemide 20 mg BIDD IV 09/15/24 18:00 09/19/24 17:44 20 MG Atorvastatin Calcium 40 mg HS PO 09/15/24 22:00 09/18/24 21:33 40 MG Digoxin 0.125 mg DAILY PO 09/16/24 10:00 09/16/24 09:17 0.125 MG Famotidine 20 mg DAILY IV 09/16/24 10:00 09/19/24 09:09 20 MG Metoprolol Tartrate 25 mg BID PO 09/16/24 22:00 09/19/24 09:14 25 MG Nicotine 1 patch DAILY TD 09/18/24 10:00 Apixaban 5 mg BID PO 09/18/24 22:00 09/19/24 09:11 5 MG objective Vitals and nursing notes reviewed. General Appearance: Alert, Oriented X3, Cooperative, No acute distress HEENT: Atraumatic, PERRLA, EOMI, Mucous membr. moist/pink Respiratory: Clear to auscultation, Normal air movement Cardiovascular: Regular rate, Normal S1, Normal S2, No murmurs Abdominal: Normal bowel sounds, Soft, No tenderness, No hepatospenomegaly Extremities: No clubbing, No cyanosis, No edema, Normal pulses, No tenderness/swelling Skin: No rashes, No breakdown, No significant lesion Neuro: Normal speech, Normal tone, Sensation intact, Cranial nerves 3-12 NL, Reflexes 2+, Other (Generalized weakness) Psych/Mental Status: Mental status NL, Mood NL laboratory and microbiology Laboratory Tests 09/17/24 07:01 Test 09/17/24 07:01 Range/Units Serum Glucose 147 H 74-106 mg/dL Problem List Atrial fibrillation with rapid ventricular rate Acute on chronic decompensated HFrEF, newly diagnosed Rule out aortic dissection COPD with current tobacco use Borderline thrombocytopenia Acute kidney injury Hard of hearing Assessment/Plan Continue current supportive medical care. Cardiology following. Transthoracic echocardiogram revealed EF 25-30% with global hypokinesis. Continued on GDMT for CHF and uptitrated as tolerated. Lipid-lowering agent. Rate control with beta-harshil and digoxin therapy. NOAC therapy. CT ruled out aortic dissection. Per report: incidental finding of abdominal aorta aneurysm measuring approximately 4.5-4.7 cm (width) x 6.6 cm (diameter). Patient is recommended for repeat CT in 6-9 months. Breathing treatments. Albuterol, Atrovent. Solu-Medrol 40 mg IV q8h. Daily lab monitoring; electrolyte replacement prn. Full Dose Anticoagulation. Nicotine patch. Additional plan as per the hospital course. Tentative discharge date 09/20/24. Dietary Evaluation Review Comments: Continue current plan of care Expected Outcomes/Goals: Pt will meet >75% estimated needs Fu 3-5 days Plan discussed with: Patient, Other ([facility]) LUISA CHAVARRIA DO Sep 19, 2024 20:02
--- NOTE | 2024-09-19 23:08 | DVHPN2 ---
Progress Note - Dictate Date Seen: Sep 19, 2024 Has the PT tested + for MRSA If YES, has PT been informed?: No Medical Necessity Reason Pt with a Central, PICC or Fol: No Subjective Patient was seen and evaluated in follow up. Patient complains of intermittent shortness of breath. Patients resting HR is between 120 and 150 bpm while sitting and goes as high as the 180's bpm while standing/walking. Patient has been advised not to go outside and smoke. Telemetry reviewed. vital signs Vital Sign Date Time Temp Pulse Resp B/P (MAP) Pulse Ox O2 Delivery O2 Flow Rate FiO2 09/19/24 20:17 122 132/74 09/19/24 16:20 97.4 15 96 97.4 09/19/24 10:18 Room Air* 0 21 Total Intake and Output 09/18/24 09/18/24 09/19/24 15:00 23:00 07:00 Intake Total 500 ml 300 ml Output Total 325 ml 450 ml Balance 175 ml -150 ml medications Current Medications Medications Dose Ordered Sig/Tiffany Route Start Time Stop Time Status Last Admin Dose Admin Methylprednisolone Sodium Succinate 40 mg Q8HR IV 09/14/24 22:00 09/19/24 20:18 40 MG Sodium Chloride 10 ml Q8HR IV 09/14/24 22:00 09/19/24 20:18 10 ML Acetaminophen/ Hydrocodone Bitart 1 tab Q4HP PRN PO 09/14/24 18:30 09/17/24 17:26 1 TAB Ondansetron HCl 4 mg Q4HP PRN IV 09/14/24 18:30 Docusate Sodium 100 mg BIDPRN PRN PO 09/14/24 18:30 09/19/24 18:49 100 MG Acetaminophen 650 mg Q6HP PRN PO 09/14/24 18:30 09/17/24 05:32 650 MG Nitroglycerin 0.4 mg Q5MINP PRN SL 09/14/24 18:30 Morphine Sulfate 2 mg Q30M PRN IV 09/14/24 18:30 Albuterol 2.5 mg Q6HPRN PRN NEB 09/15/24 13:45 Cancel Ipratropium [place] 0.5 mg Q6HPRN PRN NEB 09/15/24 13:45 Cancel Spironolactone 12.5 mg DAILY PO 09/16/24 10:00 09/19/24 09:10 12.5 MG Empaglifozin 10 mg DAILY PO 09/16/24 10:00 09/19/24 09:12 10 MG Valsartan 40 mg DAILY PO 09/16/24 10:00 09/19/24 09:11 40 MG Furosemide 20 mg BIDD IV 09/15/24 18:00 09/19/24 17:44 20 MG Atorvastatin Calcium 40 mg HS PO 09/15/24 22:00 09/19/24 20:17 40 MG Digoxin 0.125 mg DAILY PO 09/16/24 10:00 09/16/24 09:17 0.125 MG Famotidine 20 mg DAILY IV 09/16/24 10:00 09/19/24 09:09 20 MG Metoprolol Tartrate 25 mg BID PO 09/16/24 22:00 09/19/24 20:17 25 MG Nicotine 1 patch DAILY TD 09/18/24 10:00 Apixaban 5 mg BID PO 09/18/24 22:00 09/19/24 20:17 5 MG objective GENERAL: Awake, alert, oriented. LUNGS: Clear. CARDIOVASCULAR: Heart sounds are good. ABDOMEN: Soft. laboratory and microbiology Laboratory Tests 09/17/24 07:01 Test 09/17/24 07:01 Range/Units Serum Glucose 147 H 74-106 mg/dL Problem List Atrial fibrillation with rapid ventricular rate, off NOAC/AC therapy at home. Acute on chronic decompensated HFrEF, newly diagnosed. Rule out aortic dissection. COPD with current tobacco use. Borderline thrombocytopenia. Acute kidney injury. Hard of hearing. Assessment/Plan Continued all current supportive medical care. Morphine and [place] for pain management. Eliquis. Lipitor, Metoprolol. Digoxin. Diuretics with Lasix. Additional plan as per the hospital course. Dietary Evaluation Review Comments: Continue current plan of care Expected Outcomes/Goals: Pt will meet >75% estimated needs Fu 3-5 days Plan discussed with: Patient MEHRDAD CHAVARRIA MD Sep 19, 2024 22:03
[2024-09-20 05:00] VITALS: BP 111/72; PULSE 57; RESP 18; TEMP 97.4; O2SAT 95
[2024-09-20 08:00] VITALS: PULSE 73; O2SAT 96
[2024-09-20 09:00] VITALS: BP 113/84; PULSE 53; RESP 18; TEMP 98.2; O2SAT 97
[2024-09-20 10:00] VITALS: O2SAT 95
[2024-09-20] MEDS ORDERED: VALS1TAB57 PO (11:07)
[2024-09-20] MEDS ORDERED: APIX5TAB PO (11:07)
[2024-09-20] MEDS ORDERED: MET25T PO (11:07)
[2024-09-20] MEDS ORDERED: FLUT250M2 INH (11:07)
[2024-09-20] MEDS ORDERED: DIGO1TAB48 PO (11:07)
[2024-09-20] MEDS ORDERED: EMPA1TAB PO (11:07)
[2024-09-20] MEDS ORDERED: SPIR25TA PO (11:07)
[2024-09-20] MEDS ORDERED: ALBUAER3 IN (11:07)
[2024-09-20] MEDS ORDERED: ATOR40TA52 PO (11:07)
[2024-09-20] MEDS ORDERED: DOCU-265 PO (11:07)
[2024-09-20] MEDS ORDERED: METH4PAK PO (11:07)
--- NOTE | 2024-09-20 11:11 | DVHDS2 ---
Discharge Summary Date of Admission Sep 14, 2024 at 18:28 Date of Discharge: Sep 20, 2024 Admitting Diagnosis Atrial fibrillation with rapid ventricular rate Labs/Diagnostic Data: Laboratory Results Test 09/17/24 07:01 09/16/24 04:55 09/15/24 22:33 09/15/24 14:26 White Blood Count 9.4 10^3/uL (4.4-10.8) Red Blood Count 4.70 10^6/uL (4.5-5.90) Hemoglobin 15.7 g/dL (13.5-17.5) Hematocrit 46.0 % (41.0-53.0) Mean Corpuscular Volume 97.8 fL (80.0-100.0) Mean Corpuscular Hemoglobin 33.4 pg (28.0-32.0) Mean Corpuscular Hemoglobin Concent 34.2 g/dL (32.0-36.0) Red Cell Distribution Width 14.7 % (11.8-14.3) Platelet Count 158 10^3/uL (140-450) Mean Platelet Volume 8.8 fL (6.9-10.8) Neutrophils (%) (Auto) 91.3 % (37.0-80.0) Lymphocytes (%) (Auto) 5.6 % (10.0-50.0) Monocytes (%) (Auto) 3.0 % (0.0-12.0) Eosinophils (%) (Auto) 0.0 % (0.0-7.0) Basophils (%) (Auto) 0.1 % (0.0-2.0) Neutrophils # (Auto) 8.6 10 ^3/uL (1.6-8.6) Lymphocytes # (Auto) 0.5 10 ^3/uL (0.4-5.4) Monocytes # (Auto) 0.3 10 ^3/uL (0-1.3) Eosinophils # (Auto) 0 10 ^3/uL (0-0.8) Basophils # (Auto) 0 10 ^3/uL (0-0.2) Nucleated Red Blood Cells 0.1 % Sodium Level 138 mmol/L (136-145) Potassium Level 4.2 mmol/L (3.5-5.1) Chloride Level 102 mmol/L (98-107) Carbon Dioxide Level 25 mmol/L (20-31) Anion Gap 11 (5-15) Blood Urea Nitrogen 44 mg/dL (9-23) Creatinine 1.42 mg/dL (0.700-1.30) Glomerular Filtration Rate Calc 52 mL/min (>90) BUN/Creatinine Ratio 31.0 (10.0-20.0) Serum Glucose 147 mg/dL (74-106) Calcium Level 10.0 mg/dL (8.7-10.4) Magnesium Level 2.5 mg/dL (1.6-2.6) Digoxin Level 0.97 ng/mL (0.8-2) Influenza Type A Antigen Negative (Negative) Influenza Type B Antigen Negative (Negative) SARS-CoV-2 Antigen (Rapid) Negative (NEGATIVE) D-Dimer, Quantitative 5.01 mg/L FEU (0.0-0.49) Test 09/15/24 05:52 09/14/24 18:29 09/14/24 16:28 09/14/24 15:23 Hemoglobin A1c 5.3 % A1C (<5.7) Total Bilirubin 0.3 mg/dL (0.2-1.0) Aspartate Amino Transferase (AST) 23 U/L (13-40) Alanine Aminotransferase (ALT) 16 U/L (7-40) Alkaline Phosphatase 63 U/L (46-116) Total Protein 6.8 g/dL (5.7-8.2) Albumin 4.2 g/dL (3.2-4.8) Triglycerides Level 45 mg/dL (< 150) Cholesterol Level 223 mg/dL (< 200) LDL Cholesterol 150 mg/dL (< 100) HDL Cholesterol 71 mg/dL (40-59) Thyroid Stimulating Hormone (TSH) 0.82 uIU/mL (0.55-4.78) Urine Color Colorless (Yellow) Urine Clarity Clear (Clear) Urine pH 6.0 (5.0-9.0) Urine Specific [place] 1.008 (1.001-1.035) Urine Protein Negative (Negative) Urine Ketones 1+ (Negative) Urine Blood 1+ /uL (Negative) Urine Nitrite Negative (Negative) Urine Bilirubin Negative (Negative) Urine Urobilinogen Normal mg/dL (Negative) Urine Leukocyte Esterase Negative /uL (Negative) Urine RBC 8 /hpf (0 - 3) Urine Microscopic WBC < 1 /HPF (0-3) Urine Squamous Epithelial Cells None seen /hpf (<5) Urine Bacteria None seen /hpf (None Seen) Urine Glucose Normal mg/dL (Normal) Troponin I High Sensitivity 8 ng/L (</=54) B-Type Natriuretic Peptide 633.95 pg/mL (0-100) Other Laboratory Tests 09/17/24 07:01 Brief Hx & Hospital Course: Rohan Fabian is a 74-year-old M with a Past Medical History pertinent for Left eye vision loss, COPD, AFib and Congestive Heart Failure who presented to the hospital with complaint of shortness of breaths for the past 2 weeks. Patient was brought to the hospital by ambulance [facility] after patient was found with abnormal EKG showing A-Fib. While in ED, labs were remarkable for BNP 633.95, Troponin 8. Patient was also found with SHANNAN. Chest x-ray reported postoperative changes of the heart and borderline cardiomegaly, no acute intrathoracic process. CT Angio Chest reported respiratory motion artifact limits evaluation; no definite evidence of pulmonary embolism through the proximal lobar branches. Patient was admitted for further evaluation and treatment. Cardiology consulted for A-Fib management. Patient was noted with uncontrolled atrial fibrillation while walking around, HR of 150-190. Patient signed out AMA several times to go smoke per nursing staff. Patient had also been refusing many of his medications. Patient was advised on each occasion not to go outside to smoke due to tachycardia as It [employer]/Portfolio Manager was managing rate control medications. 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 Echocardiogram reported undetermined rhythm; biatrial enlargement; notable aortic root enlargement with dilation of the sinuses of Valsalva; biventricular enlargement; mild thickening of the mitral leaflets; the aortic tricuspid and pulmonic or structurally normal; left ventricular function is diminished; EF is about 25- 30%; underlying global hypokinesis; mild mitral insufficiency; mild tricuspid regurgitation; mild pulmonic insufficiency; no pericardial effusion masses or vegetations. Renal function labs are stable. Patient was reassessed by Cardiology and medications were finalized. Patient's acute symptoms overall stabilized and improved. Patient is cleared for discharge to include from cardiology standpoint and is stable at the time of discharge. Physical exam: Vitals and nursing notes reviewed. General Appearance: Alert, Oriented X3, Cooperative, No acute distress HEENT: Atraumatic, PERRLA, EOMI, Mucous membr. moist/pink Respiratory: Clear to auscultation, Normal air movement Cardiovascular: Regular rate, Normal S1, Normal S2, No murmurs Abdominal: Normal bowel sounds, Soft, No tenderness, No hepatospenomegaly Extremities: No clubbing, No cyanosis, No edema, Normal pulses, No tenderness/swelling Skin: No rashes, No breakdown, No significant lesion Neuro: Normal speech, Normal tone, Sensation intact, Cranial nerves 3-12 NL, Reflexes 2+, Other (Generalized weakness) Psych/Mental Status: Mental status NL, Mood NL Consults/Reason for consult Cardiology, Dr. Maritza Chavarria - Cathy-fib with RVR Condition at Discharge: Stable Final Diagnosis/Problems List COPD Exacerbation Atrial Fibrillation Tobacco Abuse Acute on chronic decompensated HFrEF, newly diagnosed Discharge Disposition: Home Discharge Instruct/Medications Diet: Cardiac 2g Na,low cholest Activity: No Restrictions, As Tolerated Follow Up/Referral: Primary Care Doctor in 1-2 weeks. It Investment/Portfolio Manager with Dr. Jose Alfredo Chavarria 1-2 weeks. Medications: See Medication List Discharge Statement: "Patient was advised to return to the ER or call 911 if any headaches, dizziness, shortness of breath, chest pain, abdominal pain, bleeding, fevers, or worsening of medical condition. Patient was counseled about treatment plan, medications, possible side effects, patientverbalized understanding. All questions were answered to the best of my ability. This discharge took greater then 30 minutes in planning, reviewing documentation, counseling the patient, and discussing with other team members." ASSESSMENT ASSESSMENT Assessment COPD Exacerbation Atrial Fibrillation Tobacco Abuse LUISA CHAVARRIA DO Sep 20, 2024 11:11
[2024-09-20 11:35] VITALS: PULSE 70
--- NOTE | 2024-09-20 19:02 | DVHPN2 ---
Progress Note - Dictate Date Seen: Sep 20, 2024 Has the PT tested + for MRSA If YES, has PT been informed?: No Medical Necessity Reason Pt with a Central, PICC or Fol: No Subjective Patient was seen and evaluated in follow up. Patient has no new complaints at this time. Patient denies any cardiac symptoms. Patient is cardiac stable for discharge. Telemetry reviewed. vital signs Vital Sign Date Time Temp Pulse Resp B/P (MAP) Pulse Ox O2 Delivery O2 Flow Rate FiO2 09/20/24 11:35 70 09/20/24 11:20 115/72 09/20/24 10:00 95 Room Air 0.0 09/20/24 10:00 21 09/20/24 09:00 98.2 18 98.2 Total Intake and Output 09/19/24 09/19/24 09/20/24 15:00 23:00 07:00 Intake Total 698 ml 700 ml Output Total 830 ml 800 ml Balance -132 ml -100 ml medications Current Medications Medications Dose Ordered Sig/Tiffany Route Start Time Stop Time Status Last Admin Dose Admin Albuterol 2.5 mg Q6HPRN PRN NEB 09/15/24 13:45 Cancel Ipratropium [place] 0.5 mg Q6HPRN PRN NEB 09/15/24 13:45 Cancel objective GENERAL: Awake, alert, oriented. LUNGS: Clear. CARDIOVASCULAR: Heart sounds are good. ABDOMEN: Soft. laboratory and microbiology Laboratory Tests 09/17/24 07:01 Test 09/17/24 07:01 Range/Units Serum Glucose 147 H 74-106 mg/dL Problem List Atrial fibrillation with rapid ventricular rate, off NOAC/AC therapy at home. Acute on chronic decompensated HFrEF, newly diagnosed. Rule out aortic dissection. COPD with current tobacco use. Borderline thrombocytopenia. Acute kidney injury. Hard of hearing. Assessment/Plan Continued all current supportive medical care. Morphine and [place] for pain management. Eliquis. Lipitor, Metoprolol. Digoxin. Diuretics with Lasix. Additional plan as per the hospital course. Dietary Evaluation Review Comments: Continue current plan of care Expected Outcomes/Goals: Pt will meet >75% estimated needs Fu 3-5 days Plan discussed with: Patient MEHRDAD CHAVARRIA MD Sep 20, 2024 18:05
== END 2024-09-20 15:43 | disposition home or self-care (01) | DRG 291 ==
LOC: ER 14:50 → EDBD 14:50 → OVERFLOW 18:28 → TELE-WESTW 22:14
PROVIDERS: ADMIT Internal Medicine Nephrology; ATTEND Internal Medicine Nephrology
DX: I11.0 Hypertensive heart disease with heart failure (principal); I50.23 Acute on chronic systolic (congestive) heart failure; J44.1 Chronic obstructive pulmonary disease with (acute) exacerbation; N17.9 Acute kidney failure, unspecified; I48.91 Unspecified atrial fibrillation; H54.62 Unqualified visual loss, left eye, normal vision right eye; E78.5 Hyperlipidemia, unspecified; Z20.822 Contact with and (suspected) exposure to COVID-19; R00.0 Tachycardia, unspecified; I25.10 Atherosclerotic heart disease of native coronary artery without angina pectoris; K44.9 Diaphragmatic hernia without obstruction or gangrene; F17.210 Nicotine dependence, cigarettes, uncomplicated; I71.40 Abdominal aortic aneurysm, without rupture, unspecified; D69.6 Thrombocytopenia, unspecified; Z79.891 Long term (current) use of opiate analgesic; Z79.82 Long term (current) use of aspirin; Z79.899 Other long term (current) drug therapy; Z95.1 Presence of aortocoronary bypass graft; Z79.84 Long term (current) use of oral hypoglycemic drugs; Z79.1 Long term (current) use of non-steroidal anti-inflammatories (NSAID)
CPT/HCPCS: 36415; 71045; 71260; 71275; 74177; 80048; 80053; 80061; 80162; 81001; 83036; 83735; 83880; 84443; 84484; 85025; 85379; 87426; 87804; 93005; 93306; 99291; G0378; J3490